=== PATIENT | male | born 1980 | race Caucasian/White ===

== ENCOUNTER 2022-10-06 10:34 | Emergency (ER) | payer SELFPAY ==
[2022-10-06 10:39] VITALS: BP 130/95; PULSE 102; RESP 20; TEMP 36.8; O2SAT 98
--- NOTE | 2022-10-06 10:56 | ED.ALLEREA ---
HPI - Allergic Reaction General Chief complaint: Allergic Reaction Stated complaint: facial swelling Time Seen by Provider: 10/06/22 10:53 History of Present Illness HPI narrative: Pt presents with facial swelling around eyes and neck for the last two days. Pt denies tongue swelling or SOB. Pt denies new soaps, meds, detergents, or unusual exposures. Related Data Allergies Allergy/AdvReac Type Severity Reaction Status Date / Time Penicillins Allergy Unknown Verified 10/06/22 12:51 Review of Systems Review of Systems: All systems reviewed & are unremarkable except as noted in HPI and below Exam Const: General: healthy appearing Nutritional Appearance: well nourished Orientation/consciousness: patient oriented x3 Limitations: no limitations HENMT: Other: facial swelling and edema mainly periorbital but no erythema Eyes: Conjunctivae: conjunctivae normal EOM: EOMs intact bilaterally Neck: Neck: normal visual inspection and no lymphadenopathy Resp: Effort & Inspection: normal respiratory effort Auscultation: clear to auscultation bilaterally Cardio: Rate: regular rate Rhythm: regular rhythm GI: GI Palp: Yes Soft to palpation and No Tenderness to palpation present (GI) Auscultation: normal bowel sounds Skin: General skin exam: normal color Rashes: no rashes Neuro: General: patient oriented x3, moves all extremities, no meningeal signs and no focal motor deficits Speech: normal speech Extrem: General: normal to inspection and edema (chronic per pt) bilateral Psych: Mental Status: mental status grossly normal Affect: normal affect Attitude: cooperative Course Vital Signs Vital signs: Vital Signs Temperature 98.3 F 10/06/22 10:39 Pulse Rate 102 H 10/06/22 10:39 Respiratory Rate 20 10/06/22 10:39 Blood Pressure 130/95 H 10/06/22 10:39 Pulse Oximetry 98 10/06/22 10:39 Oxygen Delivery Room Air 10/06/22 10:39 Temperature 98.3 F 10/06/22 10:39 Pulse Rate 83 10/06/22 12:50 Respiratory Rate 14 10/06/22 12:50 Blood Pressure 128/80 10/06/22 12:50 Pulse Oximetry 91 10/06/22 12:50 Oxygen Delivery Room Air 10/06/22 10:39 MDM - Allergic Reaction MDM Narrative Medical decision making narrative: looks like allergic reaction and not infection will treat with benadryl pepcid and solumedrol. Pt improved after treatment should be ok to go home Discharge Plan Discharge Clinical Impression: Allergic reaction, Angioedema Patient Disposition: Home, Self-Care Condition: Improved Instructions: Antibiotic Form, Angioedema (ED), General Allergic Reaction (ED) Additional Instructions: benadryl otc as directed Prescriptions: New prednisone 50 mg tablet 50 mg PO DAILY Qty: 5 0RF famotidine [Pepcid] 20 mg tablet 20 mg PO BID Qty: 20 0RF Follow-up/Referrals: UNKNOWN,DOCTOR [Non-Staff] - Stand Alone Forms: Work/School Release IP
[2022-10-06] MEDS: methylPREDNISolone SOD SUCC 125 MG VIAL IV PUSH (11:30)
[2022-10-06] MEDS: FAMOTIDINE 20 MG/2 ML VIAL IV PUSH (11:30)
[2022-10-06] MEDS: diphenhydrAMINE HCl INJ 50 MG/ML VIAL IV PUSH (11:30)
[2022-10-06 12:50] VITALS: BP 128/80; PULSE 83; RESP 14; O2SAT 91
== END 2022-10-06 14:30 | disposition home or self-care (01) ==
PROVIDERS: Emergency Provider Emergency Medicine
DX: T78.3XXA Angioneurotic edema, initial encounter (principal)
CPT/HCPCS: 96374; 96375; 99284; J1200; J2930

== ENCOUNTER 2022-10-30 14:50 | Inpatient (IN) | payer SELFPAY ==
[2022-10-30] VITALS (18 sets, daily range): BP systolic 137–181; BP diastolic 85–113; PULSE 105–115; RESP 18–19; TEMP 36.3–36.5; O2SAT 94–98; BMI 43.6
--- NOTE | ~2022-10-30 | XR_ITS ---
Clinical Indication: Hypoxemia AP and lateral views of the chest: Comparison: None Findings: The lungs are clear, without evidence of focal consolidation or pleural effusion. Cardiome diastinal silhouette is unremarkable. Bones and soft tissues are unremarkable. Impression: Normal chest. Reviewed, dictated and finalized at [facility]. AGE SALTER Impression: Normal chest.
--- NOTE | ~2022-10-30 | CT_ITS ---
EXAMINATION: CT LE RT w con DATE: 10/30/2022 17:28 INDICATION: Right lower limb swelling and infection. TECHNIQUE: Computed tomography (CT) of the right lower limb was performed with 100 mL Omnipaque 350 i ntravenous contrast. Automated exposure control and iterative reconstruction technique were employed. The dose-length product was 1585.33 mGy-cm. COMPARISON: None FINDINGS: Bone alignment is normal. No fracture. Right knee joint is normal. No knee joint effusion. There is extensive subcutaneous edema and skin thickening in the right lower limb predominantly below the knee. No abscess. IMPRESSION: 1. Extensive subcutaneous edema in right lower limb. No abscess. Reviewed, dictated and finalized at location A. NT LAWYER
--- NOTE | ~2022-10-30 | US_ITS ---
EXAMINATION: US venous doppler LE RT DATE: 10/30/2022 16:24 INDICATION: Unilateral right lower limb and pain and swelling. Varicose veins. TECHNIQUE: Grayscale ultrasound images without and with compression and Doppler ultrasound images of the right lower extremity veins were obtained. COMPARISON: None. FINDINGS: The visualized portions of right common femoral vein, profunda (deep) femoral vein, femoral vein, pop liteal vein, peroneal trunk, posterior tibial veins, peroneal veins, gastrocnemius vein and greater s aphenous vein outflow are patent. Prominent subcutaneous edema at the right calf. IMPRESSION: 1. No deep venous thrombosis in the right lower limb. Reviewed, dictated and finalized at location A. LE MACHINE OPERATOR
[2022-10-30 16:47] LABS: Hematocrit 46.5 % (42.0-52.0); Hemoglobin 15.3 g/dL (14.0-18.0); Mean Corpuscular HGB Conc 32.9 g/dl (32-36); Mean Corpuscular Hemoglobin 29.8 pg (26-34); Mean Corpuscular Volume 90.5 fl (80-100); Mean Platelet Volume 10.6 fl (7.4-10.4); Platelet Count Result 268 k/mm3 (150-375); Red Blood Count 5.14 M/mm3 (4.6-6.20); White Blood Count 13.2 K/mm3 (4.5-10.0)
[2022-10-30 17:00] LABS: Alanine Aminotransferase 34 U/L (6-50); Albumin Level 3.7 g/dL (3.5-5.1); Alkaline Phosphatase 120 U/L (38-126); Anion Gap 9 mmol/L (8-16); Aspartate Amino Transferase 56 U/L (17-59); Bilirubin,Total 0.5 mg/dL (0.2-1.3); Blood Urea Nitrogen 31 mg/dL (9-20); Calcium 8.3 mg/dL (8.4-10.2); Carbon Dioxide 27 mmol/L (22-30); Chloride 96 mmol/L (98-107); Estimated CRCL calculation 82 ml/min; Estimated Glomerular Filt Rate 51; Glucose 133 mg/dL (65-110); Potassium 3.9 mmol/L (3.4-5.0); Sodium 132 mmol/L (137-145)
[2022-10-30 17:25] LABS: Band Neutrophils Percent 18 % (0-6); Lymphocytes Absolute Manual 0.79 K/mm3 (1.1-4.5); Monocytes Absolute Manual 0.26 K/mm3 (0.1-0.90); Monocytes Percent Manual 2 % (3-9); Neutrophils Absolute Manual 12.14 K/mm3 (1.3-6.7); Neutrophils Percent Manual 74 % (46-73); Platelet Estimate Adequate (Adequate); Schistocytes None Seen (NORMAL); Total Cells Counted 100
[2022-10-30 17:30] LABS: Erythrocyte Sedimentation Rate 6 mm/hr (0-20)
--- NOTE | 2022-10-30 17:54 | ED.EXTPRO ---
HPI - Extremity Problem General Chief complaint: Extremity Problem,Nontraumatic Stated complaint: swelling in RLE w/ drainage Time Seen by Provider: 10/30/22 15:43 History of Present Illness HPI Narrative: Patient presents with months of swelling in his right lower extremity, with a skin rash/redness, that has been oozing watery fluid. He is denying any pain, fevers or chills. He denies any medical problems Related Data Allergies Allergy/AdvReac Type Severity Reaction Status Date / Time Penicillins Allergy Unknown Verified 10/06/22 12:51 Review of Systems Review of Systems: CONST: No fever. HEENT: No sore throat C/V: No chest pain RESP: No cough GI: No nausea vomit : No dysuria. M/S: Right lower extremity swelling and oozing SKIN: Bruising rash on right lower extremity NEURO: [No headache or focal numbness or weakness] PSYCH: [No depression] Exam Narrative: EXAMINATION OF ORGAN SYSTEMS/BODY AREAS: Constitutional: Vital signs per nursing GENERAL:[No acute distress, non-toxic appearing.] HEAD: Normal with no signs of head trauma. EYES: EOMI, conjunctiva normal ENT: Hearing grossly intact LUNGS: Nonlabored breathing. HEART: Tachycardia; normal DP pulses ABD: [Soft], [nontender to palpation] EXT: Normal range of motion, right lower extremity obviously larger compared to left SKIN: Erythematous rash right lower leg, wet, weeping thickened ulcer worst on lateral leg; no tenderness to palpation NEURO: [Alert and oriented x 3. No gross focal sensory or strength deficits.] PSYCH: Flat/indifferent affect Course Vital Signs Vital signs: Vital Signs Temperature 97.7 F 10/30/22 16:07 Pulse Rate 115 H 10/30/22 16:07 Respiratory Rate 18 10/30/22 16:07 Blood Pressure 137/85 10/30/22 16:07 Pulse Oximetry 97 10/30/22 16:07 Temperature 97.7 F 10/30/22 16:07 Pulse Rate 115 H 10/30/22 16:07 Respiratory Rate 18 10/30/22 16:07 Blood Pressure 137/85 10/30/22 16:07 Pulse Oximetry 97 10/30/22 16:07 MDM - Extremity (Nontraumatic) MDM Narrative Medical decision making narrative: 42-year-old male presenting with right lower extremity edema and redness, been seen in urgent care yesterday and started on a lot of antibiotics and told to go to the ER. He is tachycardic here, and on exam has venostasis ulcers that are weeping with erythematous indurated skin, nontender to palpation, leg is overall much thickened compared to the left, but digits are warm. My differential includes DVT, cellulitis versus deeper infection, venous stasis ulcers. Labs notable for elevated white count, DVT ultrasound does not show DVT, and CT does show subcutaneous edema. Patient started on antibiotics and IV fluids and will be admitted, case discussed with the hospitalist for admission. Lab Data 10/30/22 16:38 10/30/22 16:38 Labs: Lab Results 10/30/22 10/30/22 Range/Units 16:38 16:38 WBC 13.2 H (4.5-10.0) K/mm3 RBC 5.14 (4.6-6.20) M/mm3 Hgb 15.3 (14.0-18.0) g/dL Hct 46.5 (42.0-52.0) % MCV 90.5 (80-100) fl MCH 29.8 (26-34) pg MCHC 32.9 (32-36) g/dl RDW 14.0 (11.5-14.5) % Plt Count 268 (150-375) k/mm3 MPV 10.6 H (7.4-10.4) fl Immature Gran % (Auto) [employer] Neut % (Auto) [employer] Lymph % (Auto) [employer] Rep [place] % (Auto) [employer] Eos % (Auto) [employer] Baso % (Auto) [employer] Lymph # (Auto) [employer] [place] # (Auto) Bi[employer] Rep Eos # (Auto) [employer] Baso # (Auto) [employer] Abs Immat Gran (auto) [employer] Absolute Neuts (auto) [employer] Absolute Nucleated RBC [employer] Total Counted 100 Neutrophils % (Manual) 74 H (46-73) % Band Neutrophils % 18 H (0-6) % Lymphocytes % (Manual) 6.0 L (18-44) % Monocytes % (Manual) 2 L (3-9) % Nucleated RBC % [employer] Abs Neuts (Manual) 12.14 H (1.3-6.7) K/mm3 Abs Lymphs (Manual) 0.79 L (1.1-4.5) K/mm3 Abs Monocytes (Manual) 0.26 (0.1-0.90) K/mm3 Platelet Estimate Adequate (Adequate) Schistocytes None seen (NO
[2022-10-30] MEDS: metroNIDAZOLE 500 MG/ISO 100ML 500 MG/100 ML BAG 100 MG IVPB (18:37)
[2022-10-30] MEDS: LACTATED RINGERS 1,000 ML 999 ML IV CONT (18:37)
--- NOTE | 2022-10-30 18:47 | PM.IMHP ---
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 The patient is edematous and it is oozing watery liquid. The patient does not know how this occurred. The patient has scabbed areas all over his arms. The patient stated that he scratches often and may have scratched in areas to his lower extremity. The patient stated he has been using topical antibiotics and wrapping his leg. However in often times the bandage comes off or falls down. He denies any fever chills. His white count is 13.2. The patient stated that he could no longer take the pain and that is when he decided to go to the urgent care. He was prescribed Bactrim and doxycycline. However he stated his leg was not getting any better. The redness goes all the way up to his thigh. The patient then decided to come to the emergency room for this today. Patient's creatinine is 1.5. His blood sugar was 133. The patient was negative for influenza a B RSV and COVID. The patient was started on Levaquin and Flagyl. The patient is being admitted to inpatient status on the date of service 10/30/2022 Review of Systems Review of Systems: See HPI All systems reviewed & are unremarkable except as noted in HPI and below Constitutional: Constitutional: Reports as per HPI and Reports no additional constitutional complaints Eyes: Eyes: Reports as per HPI and Reports no additional eye complaints ENT: Reports system reviewed and no additional complaints, except as documented and Reports Normal hearing present Cardiovascular: Cardiovascular: Reports no additional cardiovascular complaints Respiratory: Respiratory: Reports no additional respiratory complaints and Reports no additional respiratory complaints Gastrointestinal: Gastrointestinal: Reports as per HPI and Reports no additional gastrointestinal complaints Musculoskeletal: Musculoskeletal: Reports no additional musculoskeletal complaints Integumentary/Breasts: Skin/Breast: Reports system reviewed and no additional complaints, except as docu and Reports as per HPI Neurologic: Reports system reviewed and no additional complaints, except as documented, Reports as per HPI and Reports Normal hearing present Psychiatric: Psychiatric: Reports no additional psychiatric complaints and Reports as per HPI Endocrine: Endocrine: Reports no additional endocrine complaints Hematologic/Lymphatic: Hematologic/Lymphatic: Reports no additional hematologic/lymphatic complaints Allergic/Immunologic: Allergic/Immunologic: Reports no additional allergic/immunologic complaints PMFSH Past Medical History Medical History History of gastrostomy tube placement now removed Surgical History Surgical History Hx of chest tube placement now out Hx of tracheostomy now out Family History Family History Father Alcoholism Social History Social History (Updated 10/31/22 @ 00:30 by Mary Wayne NP) Social History: 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 He is and has 2 children. He continues to smoke 1-1 and half to 2 packs of cigarettes a day. Code status full code Smoking packs per day: 2 Smoking cigarettes per day: 40.0 Smoking status: Heavy tobacco smoker Second hand tobacco smoke exposure: No Alcohol intake: former Drinks per week: 3 Substance use: never Substance use type: does not use Lack of Transportation: No Lack of Food: Never True Current Housing: I Have Housing Concerned About Future Housing: No Difficulty Paying Gas/Electric Bills: No Difficulty Paying for Meds: No Curre
[2022-10-30 19:22] LABS: Influenza A QL RT-PCR Negative (Negative); Influenza B QL RT-PCR Negative (Negative); RSV RNA, RT-PCR Negative (Negative); SARS-CoV-2 RNA PCR Negative
--- NOTE | 2022-10-30 21:21 | PC.NURSE ---
Patient arrived on 3 Med-Surg at 21:15
[2022-10-30] MEDS: traMADol HCL (*CRX) 25 MG TABLET PO (21:45)
--- NOTE | 2022-10-31 | ECHO_ITS ---
Patient Info Name: Jean Gongora Age: 42 years : 1980 Gender: Male Ht: 72 in Wt: 321 lbs BSA: 2.79 m2 HR: 111 bpm BP: 150 / 92 mmHg Heart Rhythm: Sinus Rhythm Technical Quality: Poor Exam Date: 10/31/2022 1:42 PM Exam Location: [facility] Exam Room: 330 Patient Status: Inpatient Admit Date: 10/30/2022 Staff Ordering Physician: Stephany Leo MD Rn Hospice: Leena Gaston RDCS Attending Provider: Bello Duffy MD Exam Type: CA echo dop color flow w con Study Info Indications - JOHN Complete two-dimensional, color flow and Doppler transthoracic echocardiogram is performed with contrast to opacify the left ventricle and to improve the deliniation of the left ventricle endocardial borders. Contrast/Agitated Saline Contrast/Ag. Saline: Definity Amount: 2.00 ml Administered By: Leena Gaston [facility] Existing IV Access: Yes IV Access Condition: patent with no signs of infiltration Reason for Poor Study: patient body habitus Summary 1. Technically difficult echocardiogram because of obesity. 2. Definity contrast injected to improve visualization. 3. Hyperdynamic left ventricular systolic function. 4. No significant valvular dysfunction identified. Left Ventricle Left ventricular chamber dimension is normal. Left ventricular systolic function is hyperdynamic, estimated at >70%. The left ventricular diastolic function is grade I diastolic dysfunction. Right Ventricle Right ventricular chamber dimension is normal. Left Atria Left atrial chamber dimension is normal. Right Atria Right atrial chamber dimension is normal. Aortic Valve The aortic valve is normal. Pulmonic Valve The pulmonic valve is not well visualized. Mitral Valve The mitral valve has normal leaflets. Tricuspid Valve The tricuspid valve leaflets are not well visualized. Pericardium/Pleural The pericardium appears normal. Aorta The aortic root size at the sinus of Valsalva is normal. Left Ventricular Outflow Tract Name Value Normal LVOT 2D LVOT Diameter 2.18 cm Pulmonic Valve Name Value Normal PV Doppler PV Peak Gradient 4 mmHg Mitral Valve Name Value Normal MV Doppler MV Decel [place] 410.37 cm/s2 MV PHT 0 s MV Area (PHT) 3.61 cm2 4.00-5.00 MV Diastolic Function MV E Peak Velocity 86.31 cm/s MV A Peak Velocity 93.32 cm/s MV E/A 0.92 MV Decel Time
[2022-10-31] MEDS: metroNIDAZOLE 500 MG/ISO 100ML 500 MG/100 ML BAG 100 MG IVPB ×5 (00:15→23:35)
[2022-10-31 06:00] VITALS: BP 150/92; PULSE 117; RESP 19; TEMP 37.4; O2SAT 93
[2022-10-31 06:42] LABS: Hemoglobin 13.1 g/dL (14.0-18.0); Mean Corpuscular HGB Conc 32.8 g/dl (32-36); Mean Corpuscular Hemoglobin 29.8 pg (26-34); Mean Corpuscular Volume 90.9 fl (80-100); Mean Platelet Volume 11.1 fl (7.4-10.4); Platelet Count Result 236 k/mm3 (150-375); Red Cell Distribution Width 13.8 % (11.5-14.5); White Blood Count 13.4 K/mm3 (4.5-10.0)
[2022-10-31 06:51] LABS: Lactic Acid Reflex 0.9 mmol/L (0.7-2.0)
[2022-10-31 07:04] LABS: Alanine Aminotransferase 31 U/L (6-50); Albumin Level 3.2 g/dL (3.5-5.1); Alkaline Phosphatase 110 U/L (38-126); Anion Gap 2 mmol/L (8-16); Aspartate Amino Transferase 47 U/L (17-59); Bilirubin,Total 0.4 mg/dL (0.2-1.3); Blood Urea Nitrogen 18 mg/dL (9-20); Calcium 7.8 mg/dL (8.4-10.2); Carbon Dioxide 26 mmol/L (22-30); Chloride 100 mmol/L (98-107); Estimated CRCL calculation 124 ml/min; Estimated Glomerular Filt Rate > 60; Glucose 134 mg/dL (65-110); Potassium 3.8 mmol/L (3.4-5.0); Sodium 128 mmol/L (137-145)
[2022-10-31 07:22] LABS: Band Neutrophils Percent 12 % (0-6); Lymphocytes Absolute Manual 0.93 K/mm3 (1.1-4.5); Monocytes Absolute Manual 0.53 K/mm3 (0.1-0.90); Monocytes Percent Manual 4 % (3-9); Neutrophils Absolute Manual 11.92 K/mm3 (1.3-6.7); Neutrophils Percent Manual 77 % (46-73); Platelet Estimate Adequate (Adequate); Total Cells Counted 100
[2022-10-31 07:23] LABS: Schistocytes None Seen (NORMAL)
[2022-10-31] MEDS: MULTIVITAMINS /C LUTEIN (CENTRUM SILVER) TABLET *BKC 1 TAB PO (08:28)
[2022-10-31] MEDS: ENOXAPARIN 40 MG/0.4 ML SYRINGE SUB-Q (08:28)
[2022-10-31] MEDS: traMADol HCL (*CRX) 25 MG TABLET PO ×3 (08:34→23:36)
[2022-10-31 10:26] VITALS: O2SAT 92
[2022-10-31] MEDS: SILVERGEL (ELTA) 45 ML 1 APPLIC TOPICAL (12:50)
[2022-10-31] MEDS: MUPIROCIN 2% OINT 22 GM TUBE 1 APPLIC TOPICAL (12:50)
[2022-10-31] MEDS: PERFLUTREN LIPID MICROSPHERES 1.5 ML VIAL DILUTED TO 10 ML TOTAL VOLUME IV PUSH (14:10)
[2022-10-31 14:26] VITALS: BP 139/73; PULSE 113; RESP 18; TEMP 37.1; O2SAT 92
--- NOTE | 2022-10-31 17:42 | PM.IMPN ---
Progress Note: A&P Assessment and Plan (1) Cellulitis: Code(s): L03.90 - Cellulitis, unspecified Status: Acute Assessment and Plan: -the patient was started on Levaquin and Flagyl. -tailor antibiotics to cultures. Wound and blood cultures are pending. The patient had a leukocytosis of 13.2 -I did consult Wound Care for dressings -patient had been on doxycycline and Bactrim outpatient. -the patient had been taking NSAIDs for discomfort -he is currently on tramadol -venous Dopplers were negative. 10/31/2022 interval history: patient with a right lower leg erythmatous and swallow, compared to left lower extremity which appears to be normal, venous Doppler negative for DVT, patient does not have any history of cardiac however to further evaluate cardiac echo is ordered, meanwhile patient is treated with antibiotics for cellulitis, suspect most likely patient has lymphadenopathy will continue to monitor have PT OT evaluate the patient. (2) Acute renal failure: Code(s): N17.9 - Acute kidney failure, unspecified Status: Acute Assessment and Plan: -the patient had been taking at 1000 mg of ibuprofen every 4 hours as needed. -I am holding nephrotoxic medication at this time. -the patient had also been on doxycycline and Bactrim. -continue to monitor renal function. His creatinine is 1.5 and I have no prior labs for comparison (3) Elevated blood pressure reading: Code(s): R03.0 - Elevated blood-pressure reading, without diagnosis of hypertension Status: Acute Assessment and Plan: -please continue to monitor. His blood pressure may be elevated due to the pain. -she has p.r.n. hydralazine with parameters. Blood pressure was noted to be 152/104. 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 The patient is edematous and it is oozing watery liquid.? The patient does not know how this occurred.? The patient has scabbed areas all over his arms.? The patient stated that he scratches often and may have scratched in areas to his lower extremity.? The patient stated he has been using topical antibiotics and wrapping his leg.? However in often times the bandage comes off or falls down.? He denies any fever chills.? His white count is 13.2.? The patient stated that he could no longer take the pain and that is when he decided to go to the urgent care.? He was prescribed Bactrim and doxycycline.? However he stated his leg was not getting any better.? The redness goes all the way up to his thigh.? The patient then decided to come to the emergency room for this today.? Patient's creatinine is 1.5.? His blood sugar was 133.? The patient was negative for influenza a B RSV and COVID.? The patient was started on Levaquin and Flagyl.? The patient is being admitted to inpatient status on the date of service 10/30/2022 10/31/2022 interval history: patient with a right lower leg erythmatous and swallow, compared to left lower extremity which appears to be normal, venous Doppler negative for DVT, patient does not have any history of cardiac however to further evaluate cardiac echo is ordered, meanwhile patient is treated with antibiotics for cellulitis, suspect most likely patient has lymphadenopathy will continue to monitor have PT OT evaluate the patient. Review of Systems Review of Systems: See HPI All systems reviewed & are unremarkable except as noted in HPI and below Constitutional: Constitutional: Reports as per HPI and Reports no additional constitutional complaints Eyes: Eyes: Reports as per HPI and Reports no additional eye complaints ENT: Reports system reviewed and no additional complaints, except as documented and Reports Normal hearing present Cardiovascular: Cardiovascular: Reports no additional cardiovascular complaints
[2022-10-31 21:28] VITALS: BP 126/68; PULSE 81; RESP 20; TEMP 36.3; O2SAT 93
[2022-11-01 05:18] VITALS: BP 126/81; PULSE 108; RESP 20; TEMP 36.4; O2SAT 90
[2022-11-01] MEDS: metroNIDAZOLE 500 MG/ISO 100ML 500 MG/100 ML BAG 100 MG IVPB ×4 (06:30→21:41)
[2022-11-01] MEDS: MULTIVITAMINS /C LUTEIN (CENTRUM SILVER) TABLET *BKC 1 TAB PO (09:56)
[2022-11-01] MEDS: ENOXAPARIN 40 MG/0.4 ML SYRINGE SUB-Q (09:56)
[2022-11-01] MEDS: MUPIROCIN 2% OINT 22 GM TUBE 1 APPLIC TOPICAL (10:00)
[2022-11-01] MEDS: SILVERGEL (ELTA) 45 ML 1 APPLIC TOPICAL (10:00)
--- NOTE | 2022-11-01 12:28 | PM.IMPN ---
Progress Note: A&P Assessment and Plan (1) Cellulitis: Code(s): L03.90 - Cellulitis, unspecified Status: Acute Assessment and Plan: -the patient was started on Levaquin and Flagyl. -tailor antibiotics to cultures. Wound and blood cultures are pending. The patient had a leukocytosis of 13.2 -I did consult Wound Care for dressings -patient had been on doxycycline and Bactrim outpatient. -the patient had been taking NSAIDs for discomfort -he is currently on tramadol -venous Dopplers were negative. 11/01/2022 interval history: patient with a right lower leg erythmatous and edematous, compared to left lower extremity which appears to be normal, venous Doppler negative for DVT, patient does not have any history of cardiac however to further evaluate cardiac echo was done and which LV systolic EF 70% and grade 1 diastolic dysfunction, unlikely cardiac cause of left lower extremity edema, patient is treated with antibiotics for cellulitis, suspect most likely patient has lymphadenopathy will continue to monitor have PT OT evaluate the patient. (2) Acute renal failure: Code(s): N17.9 - Acute kidney failure, unspecified Status: Acute Assessment and Plan: -the patient had been taking at 1000 mg of ibuprofen every 4 hours as needed. -I am holding nephrotoxic medication at this time. -the patient had also been on doxycycline and Bactrim. -continue to monitor renal function. His creatinine is 1.5 and I have no prior labs for comparison (3) Elevated blood pressure reading: Code(s): R03.0 - Elevated blood-pressure reading, without diagnosis of hypertension Status: Acute Assessment and Plan: -please continue to monitor. His blood pressure may be elevated due to the pain. -she has p.r.n. hydralazine with parameters. Blood pressure was noted to be 152/104. Subjective Date/time seen: 11/01/22 12:28 -the patient was started on Levaquin and Flagyl. -tailor antibiotics to cultures. Wound and blood cultures are pending. The patient had a leukocytosis of 13.2 -I did consult Wound Care for dressings -patient had been on doxycycline and Bactrim outpatient. -the patient had been taking NSAIDs for discomfort -he is currently on tramadol -venous Dopplers were negative. 11/01/2022 interval history: patient with a right lower leg erythmatous and edematous, compared to left lower extremity which appears to be normal, venous Doppler negative for DVT, patient does not have any history of cardiac however to further evaluate cardiac echo was done and which LV systolic EF 70% and grade 1 diastolic dysfunction, unlikely cardiac cause of left lower extremity edema, patient is treated with antibiotics for cellulitis, suspect most likely patient has lymphadenopathy will continue to monitor have PT OT evaluate the patient. Review of Systems Review of Systems: All systems reviewed & are unremarkable except as noted in HPI and below Exam Narrative: morbidly obese Patient is comfortable, NAD HEENT: eyes are clear and none icteric LUNGS:CTA HEART: RR S1S2 ABD: BS+, Soft and nontender Lower extremities: right lower extremity edematous and erythematous compared to left lower extremity SKIN: nonjaundiced Neuro: grossly intact. Objective Data Vital Signs Vital Signs: Vital Signs - 24 hr 10/31/22 14:26 10/31/22 21:28 10/31/22 20:00 Temperature 98.8 F 97.4 F L Pulse Rate 113 H 81 Respiratory Rate 18 20 Blood Pressure 139/73 126/68 Pulse Oximetry 92 93 Oxygen Delivery Room Air 11/01/22 05:18 Temperature 97.5 F L Pulse Rate 108 H Respiratory Rate 20 Blood Pressure 126/81 Pulse Oximetry 90 Oxygen Delivery Intake/Output Intake/Output: Intake & Output 10/29/22 10/30/22 10/31/22 11/01/22 23:59 23:59 23:59 23:59 Intake Total 1250 3110 1366 Balance 1250 3110 1366 Meds/Results Medications: Active Medications Generic Name Dose Route Start Last Admin T
[2022-11-01] MEDS: traMADol HCL (*CRX) 25 MG TABLET PO ×2 (13:03→21:49)
[2022-11-01 14:00] VITALS: BP 126/70; PULSE 101; RESP 20; TEMP 36.7; O2SAT 95
[2022-11-01 21:41] VITALS: BP 144/79; PULSE 104; RESP 18; TEMP 36.9; O2SAT 93
[2022-11-02] MEDS: metroNIDAZOLE 500 MG/ISO 100ML 500 MG/100 ML BAG 100 MG IVPB ×4 (05:53→22:50)
[2022-11-02 06:00] VITALS: BP 120/94; PULSE 100; RESP 20; TEMP 36.3; O2SAT 92
[2022-11-02] MEDS: MULTIVITAMINS /C LUTEIN (CENTRUM SILVER) TABLET *BKC 1 TAB PO (09:09)
[2022-11-02] MEDS: ENOXAPARIN 40 MG/0.4 ML SYRINGE SUB-Q (09:09)
[2022-11-02] MEDS: MUPIROCIN 2% OINT 22 GM TUBE 1 APPLIC TOPICAL (09:11)
[2022-11-02] MEDS: traMADol HCL (*CRX) 25 MG TABLET PO ×2 (09:14→20:52)
[2022-11-02] MEDS: SILVERGEL (ELTA) 45 ML 1 APPLIC TOPICAL (10:17)
--- NOTE | 2022-11-02 10:50 | PM.IMPN ---
Progress Note: A&P Assessment and Plan (1) Cellulitis: Code(s): L03.90 - Cellulitis, unspecified Status: Acute Assessment and Plan: -the patient was started on Levaquin and Flagyl. -tailor antibiotics to cultures. Wound and blood cultures are pending. The patient had a leukocytosis of 13.2 -I did consult Wound Care for dressings -patient had been on doxycycline and Bactrim outpatient. -the patient had been taking NSAIDs for discomfort -he is currently on tramadol -venous Dopplers were negative. 11/02/2022 interval history: patient with a right lower leg erythmatous and edematous, compared to left lower extremity which appears to be normal, venous Doppler negative for DVT, patient does not have any history of cardiac however to further evaluate cardiac echo was done and which showed LV systolic EF 70% and grade 1 diastolic dysfunction, unlikely cardiac cause of left lower extremity edema, today examined patient right lower extremity along anterior aspect superficial erosive ulcer with minimal drainage, woond dressin applied, would culture is growing pseudomonas rodriguez sensitive currently treated with Levofloxin and flagyl, blood culture no growth so far, suspect most likely patient has lymphadenopathy will continue to monitor have PT OT evaluate the patient. (2) Acute renal failure: Code(s): N17.9 - Acute kidney failure, unspecified Status: Acute Assessment and Plan: -the patient had been taking at 1000 mg of ibuprofen every 4 hours as needed. -I am holding nephrotoxic medication at this time. -the patient had also been on doxycycline and Bactrim. -continue to monitor renal function. His creatinine is 1.5 and I have no prior labs for comparison (3) Elevated blood pressure reading: Code(s): R03.0 - Elevated blood-pressure reading, without diagnosis of hypertension Status: Acute Assessment and Plan: -please continue to monitor. His blood pressure may be elevated due to the pain. -she has p.r.n. hydralazine with parameters. Blood pressure was noted to be 152/104. Subjective Date/time seen: 11/02/22 10:50 11/02/2022 interval history: patient with a right lower leg erythmatous and edematous, compared to left lower extremity which appears to be normal, venous Doppler negative for DVT, patient does not have any history of cardiac however to further evaluate cardiac echo was done and which showed LV systolic EF 70% and grade 1 diastolic dysfunction, unlikely cardiac cause of left lower extremity edema, today examined patient right lower extremity along anterior aspect superficial erosive ulcer with minimal drainage, woond dressin applied, would culture is growing pseudomonas rodriguez sensitive currently treated with Levofloxin and flagyl, blood culture no growth so far, suspect most likely patient has lymphadenopathy will continue to monitor have PT OT evaluate the patient. Review of Systems Review of Systems: All systems reviewed & are unremarkable except as noted in HPI and below Exam Narrative: morbidly obese Patient is comfortable, NAD HEENT: eyes are clear and none icteric LUNGS:CTA HEART: RR S1S2 ABD: BS+, Soft and nontender Lower extremities: right lower extremity edematous and erythematous compared to left lower extremity SKIN: nonjaundiced Neuro: grossly intact. Objective Data Vital Signs Vital Signs: Vital Signs - 24 hr 11/01/22 14:00 11/01/22 21:41 11/02/22 06:00 Temperature 98.0 F 98.5 F 97.3 F L Pulse Rate 101 H 104 H 100 Respiratory Rate 20 18 20 Blood Pressure 126/70 144/79 H 120/94 H Pulse Oximetry 95 93 92 Intake/Output Intake/Output: Intake & Output 10/30/22 10/31/22 11/01/22 11/02/22 23:59 23:59 23:59 23:59 Intake Total 1250 3110 2996 500 Output Total 3 1000 Balance 1250 3110 2993 -500 Meds/Results Medications: Active Medications Generic Name Dose Route Start Last Admin Trade Name Freq PRN Reason Stop Dose Admin
[2022-11-02 14:00] VITALS: BP 123/77; PULSE 106; RESP 20; TEMP 36.8; O2SAT 92
[2022-11-02 21:09] VITALS: BP 136/75; PULSE 109; RESP 18; TEMP 36.9; O2SAT 90
--- NOTE | 2022-11-03 04:57 | PC.NURSE ---
Patient resting quietly in bed. Was awake and not in any distress when [employer] did vitals and noted patient's pulse ox was 79%. abstract clerk at bedside with this nurse and patient was placed on 3L NC of oxygen. Patient had come up to 91% on his own but took several minutes to recover. Patient states that he smokes 1-2 packs per day and is a noncompliant SANDEEP patient. Patient denied any SOB or distress of any kind.
[2022-11-03 05:24] VITALS: BP 158/83; PULSE 111; RESP 16; TEMP 37.1; O2SAT 92
[2022-11-03] MEDS: metroNIDAZOLE 500 MG/ISO 100ML 500 MG/100 ML BAG 100 MG IVPB ×4 (05:34→23:57)
[2022-11-03 08:08] LABS: Hematocrit 41.3 % (42.0-52.0); Hemoglobin 13.2 g/dL (14.0-18.0); Mean Corpuscular Hemoglobin 29.7 pg (26-34); Platelet Count Result 328 k/mm3 (150-375); Red Blood Count 4.44 M/mm3 (4.6-6.20); Red Cell Distribution Width 14.2 % (11.5-14.5); White Blood Count 18.3 K/mm3 (4.5-10.0)
[2022-11-03 08:28] LABS: Anion Gap 5 mmol/L (8-16); Blood Urea Nitrogen 8 mg/dL (9-20); Calcium 7.8 mg/dL (8.4-10.2); Carbon Dioxide 28 mmol/L (22-30); Chloride 102 mmol/L (98-107); Estimated CRCL calculation 172 ml/min; Estimated Glomerular Filt Rate > 60; Glucose 114 mg/dL (65-110); Magnesium 1.9 mg/dL (1.6-2.3); Potassium 3.5 mmol/L (3.4-5.0); Sodium 135 mmol/L (137-145)
[2022-11-03] MEDS: MULTIVITAMINS /C LUTEIN (CENTRUM SILVER) TABLET *BKC 1 TAB PO (08:33)
[2022-11-03] MEDS: traMADol HCL (*CRX) 25 MG TABLET PO ×2 (08:33→20:41)
[2022-11-03] MEDS: ENOXAPARIN 40 MG/0.4 ML SYRINGE SUB-Q (08:33)
[2022-11-03] MEDS: MUPIROCIN 2% OINT 22 GM TUBE 1 APPLIC TOPICAL (08:34)
[2022-11-03] MEDS: SILVERGEL (ELTA) 45 ML 1 APPLIC TOPICAL (08:34)
[2022-11-03 08:40] VITALS: O2SAT 91
[2022-11-03 13:50] VITALS: BP 132/86; PULSE 103; RESP 17; TEMP 36.8; O2SAT 100
--- NOTE | 2022-11-03 15:04 | PM.IMPN ---
Progress Note: A&P Assessment and Plan (1) Cellulitis: Code(s): L03.90 - Cellulitis, unspecified Status: Acute Assessment and Plan: -the patient was started on Levaquin and Flagyl. -tailor antibiotics to cultures. Wound and blood cultures are pending. The patient had a leukocytosis of 13.2 -I did consult Wound Care for dressings -patient had been on doxycycline and Bactrim outpatient. -the patient had been taking NSAIDs for discomfort -he is currently on tramadol -venous Dopplers were negative. 11/03/2022 interval history: patient with a right lower leg erythmatous and edematous, compared to left lower extremity which appears to be normal, venous Doppler negative for DVT, patient does not have any history of cardiac however to further evaluate cardiac echo was done and which showed LV systolic EF 70% and grade 1 diastolic dysfunction, unlikely cardiac cause of left lower extremity edema, on 11/02 examined patient right lower extremity along anterior aspect superficial erosive ulcer with minimal drainage, wound dressing applied, would culture is growing pseudomonas rodriguez sensitive currently treated with Levofloxin and flagyl, blood culture no growth so far, today discussed with ID pharmacy recommended to repeat the blood culture and further recommendation to follow suspect most likely patient has lymphadenopathy will continue to monitor have PT OT evaluate the patient. (2) Acute renal failure: Code(s): N17.9 - Acute kidney failure, unspecified Status: Acute Assessment and Plan: -the patient had been taking at 1000 mg of ibuprofen every 4 hours as needed. -I am holding nephrotoxic medication at this time. -the patient had also been on doxycycline and Bactrim. -continue to monitor renal function. His creatinine is 1.5 and I have no prior labs for comparison (3) Elevated blood pressure reading: Code(s): R03.0 - Elevated blood-pressure reading, without diagnosis of hypertension Status: Acute Assessment and Plan: -please continue to monitor. His blood pressure may be elevated due to the pain. -she has p.r.n. hydralazine with parameters. Blood pressure was noted to be 152/104. Subjective Date/time seen: 11/03/22 15:04 -the patient was started on Levaquin and Flagyl. -tailor antibiotics to cultures. Wound and blood cultures are pending. The patient had a leukocytosis of 13.2 -I did consult Wound Care for dressings -patient had been on doxycycline and Bactrim outpatient. -the patient had been taking NSAIDs for discomfort -he is currently on tramadol -venous Dopplers were negative. 11/03/2022 interval history: patient with a right lower leg erythmatous and edematous, compared to left lower extremity which appears to be normal, venous Doppler negative for DVT, patient does not have any history of cardiac however to further evaluate cardiac echo was done and which showed LV systolic EF 70% and grade 1 diastolic dysfunction, unlikely cardiac cause of left lower extremity edema, on 11/02 examined patient right lower extremity along anterior aspect superficial erosive ulcer with minimal drainage, wound dressing applied, would culture is growing pseudomonas rodriguez sensitive currently treated with Levofloxin and flagyl, blood culture no growth so far, today discussed with ID pharmacy recommended to repeat the blood culture and further recommendation to follow suspect most likely patient has lymphadenopathy will continue to monitor have PT OT evaluate the patient. Review of Systems Review of Systems: All systems reviewed & are unremarkable except as noted in HPI and below Exam Narrative: morbidly obese Patient is comfortable, NAD HEENT: eyes are clear and none icteric LUNGS:CTA HEART: RR S1S2 ABD: BS+, Soft and nontender Lower extremities: right lower extremity edematous and erythematous compared to left lower extremity SKIN: nonjaundiced Neuro: grossly intact. Objective [place]
[2022-11-03 22:00] VITALS: BP 134/86; PULSE 105; RESP 18; TEMP 36.7; O2SAT 91
[2022-11-04 05:19] VITALS: BP 135/73; PULSE 105; RESP 20; TEMP 36.8; O2SAT 92
[2022-11-04] MEDS: metroNIDAZOLE 500 MG/ISO 100ML 500 MG/100 ML BAG 100 MG IVPB ×4 (06:29→23:23)
[2022-11-04 08:16] LABS: Hematocrit 40.9 % (42.0-52.0); Hemoglobin 12.9 g/dL (14.0-18.0); Mean Corpuscular HGB Conc 31.5 g/dl (32-36); Mean Corpuscular Hemoglobin 29.3 pg (26-34); Mean Platelet Volume 10.9 fl (7.4-10.4); Platelet Count Result 371 k/mm3 (150-375); Red Cell Distribution Width 14.4 % (11.5-14.5); White Blood Count 19.4 K/mm3 (4.5-10.0)
[2022-11-04 08:20] LABS: Anion Gap 3 mmol/L (8-16); Blood Urea Nitrogen 7 mg/dL (9-20); Calcium 7.8 mg/dL (8.4-10.2); Carbon Dioxide 31 mmol/L (22-30); Chloride 101 mmol/L (98-107); Estimated CRCL calculation 172 ml/min; Estimated Glomerular Filt Rate > 60; Glucose 119 mg/dL (65-110); Magnesium 1.8 mg/dL (1.6-2.3); Potassium 3.3 mmol/L (3.4-5.0); Sodium 135 mmol/L (137-145)
[2022-11-04] MEDS: MUPIROCIN 2% OINT 22 GM TUBE 1 APPLIC TOPICAL (08:59)
[2022-11-04] MEDS: ENOXAPARIN 40 MG/0.4 ML SYRINGE SUB-Q (08:59)
[2022-11-04] MEDS: SILVERGEL (ELTA) 45 ML 1 APPLIC TOPICAL (08:59)
[2022-11-04] MEDS: MULTIVITAMINS /C LUTEIN (CENTRUM SILVER) TABLET *BKC 1 TAB PO (08:59)
[2022-11-04] MEDS: traMADol HCL (*CRX) 25 MG TABLET PO ×4 (09:02→23:28)
[2022-11-04] MEDS: POTASSIUM CHLORIDE 20 MEQ TABLET 40 MEQ PO (09:02)
[2022-11-04] MEDS: GENTAMICIN SULFATE 0.1% CR 15 GM TUBE 1 APPLIC TOPICAL (13:28)
[2022-11-04 14:00] VITALS: BP 159/92; PULSE 98; RESP 20; TEMP 36.4; O2SAT 98
--- NOTE | 2022-11-04 14:04 | PM.IMPN ---
Progress Note: A&P Assessment and Plan (1) Cellulitis: Code(s): L03.90 - Cellulitis, unspecified Status: Acute Assessment and Plan: -the patient was started on Levaquin and Flagyl. -tailor antibiotics to cultures. Wound and blood cultures are pending. The patient had a leukocytosis of 13.2 -I did consult Wound Care for dressings -patient had been on doxycycline and Bactrim outpatient. -the patient had been taking NSAIDs for discomfort -he is currently on tramadol -venous Dopplers were negative. 11/04/2022 interval history: patient with a right lower leg erythmatous and edematous, compared to left lower extremity which appears to be normal, venous Doppler negative for DVT, patient does not have any history of cardiac however to further evaluate cardiac echo was done and which showed LV systolic EF 70% and grade 1 diastolic dysfunction, unlikely cardiac cause of left lower extremity edema, on 11/02 examined patient right lower extremity along anterior aspect superficial erosive ulcer with minimal drainage, wound dressing applied, would culture is growing pseudomonas rodriguez sensitive currently treated with Levofloxin and flagyl, blood culture no growth so far, on 11/03 patient white counts were climbing, discussed with ID pharmacy recommended to repeat the blood culture and further recommendation to follow suspect most likely patient has lymphadenopathy will continue to monitor have PT OT evaluate the patient. today examined the wound with his nurse and have wound team examine the wound which is improving, and recommended gentamicin ointment for th wound, if there is no growth on repeat blood culture, will discharge on 11/06. (2) Acute renal failure: Code(s): N17.9 - Acute kidney failure, unspecified Status: Acute Assessment and Plan: -the patient had been taking at 1000 mg of ibuprofen every 4 hours as needed. -I am holding nephrotoxic medication at this time. -the patient had also been on doxycycline and Bactrim. -continue to monitor renal function. His creatinine is 1.5 and I have no prior labs for comparison (3) Elevated blood pressure reading: Code(s): R03.0 - Elevated blood-pressure reading, without diagnosis of hypertension Status: Acute Assessment and Plan: -please continue to monitor. His blood pressure may be elevated due to the pain. -she has p.r.n. hydralazine with parameters. Blood pressure was noted to be 152/104. Subjective Date/time seen: 11/04/22 14:04 11/04/2022 interval history: patient with a right lower leg erythmatous and edematous, compared to left lower extremity which appears to be normal, venous Doppler negative for DVT, patient does not have any history of cardiac however to further evaluate cardiac echo was done and which showed LV systolic EF 70% and grade 1 diastolic dysfunction, unlikely cardiac cause of left lower extremity edema, on 11/02 examined patient right lower extremity along anterior aspect superficial erosive ulcer with minimal drainage, wound dressing applied, would culture is growing pseudomonas rodriguez sensitive currently treated with Levofloxin and flagyl, blood culture no growth so far, on 11/03 patient white counts were climbing, discussed with ID pharmacy recommended to repeat the blood culture and further recommendation to follow suspect most likely patient has lymphadenopathy will continue to monitor have PT OT evaluate the patient. today examined the wound with his nurse and have wound team examine the wound which is improving, and recommended gentamicin ointment for th wound, if there is no growth on repeat blood culture, will discharge on 11/06. Review of Systems Review of Systems: All systems reviewed & are unremarkable except as noted in HPI and below Exam Narrative: morbidly obese Patient is comfortable, NAD HEENT: eyes are clear and none icteric LUNGS:CTA HEART: RR S1S2 ABD: BS+, Soft and nontender Lower extremitie
[2022-11-04 21:57] VITALS: BP 143/89; PULSE 105; RESP 14; TEMP 36.1; O2SAT 90
[2022-11-05] MEDS: traMADol HCL (*CRX) 25 MG TABLET PO ×3 (03:33→17:34)
[2022-11-05] MEDS: metroNIDAZOLE 500 MG/ISO 100ML 500 MG/100 ML BAG 100 MG IVPB ×2 (05:26→11:27)
[2022-11-05 05:53] VITALS: BP 134/62; PULSE 92; RESP 14; TEMP 36.3; O2SAT 90
[2022-11-05 06:33] LABS: Hematocrit 39.9 % (42.0-52.0); Hemoglobin 12.7 g/dL (14.0-18.0); Mean Corpuscular HGB Conc 31.8 g/dl (32-36); Mean Corpuscular Hemoglobin 29.7 pg (26-34); Mean Corpuscular Volume 93.2 fl (80-100); Mean Platelet Volume 10.8 fl (7.4-10.4); Platelet Count Result 386 k/mm3 (150-375); Red Blood Count 4.28 M/mm3 (4.6-6.20); Red Cell Distribution Width 14.3 % (11.5-14.5); White Blood Count 18.4 K/mm3 (4.5-10.0)
[2022-11-05 06:46] LABS: Anion Gap 3 mmol/L (8-16); Blood Urea Nitrogen 7 mg/dL (9-20); Calcium 7.6 mg/dL (8.4-10.2); Carbon Dioxide 30 mmol/L (22-30); Chloride 102 mmol/L (98-107); Estimated CRCL calculation 172 ml/min; Estimated Glomerular Filt Rate > 60; Glucose 118 mg/dL (65-110); Magnesium 1.9 mg/dL (1.6-2.3); Potassium 3.6 mmol/L (3.4-5.0); Sodium 135 mmol/L (137-145)
[2022-11-05] MEDS: MULTIVITAMINS /C LUTEIN (CENTRUM SILVER) TABLET *BKC 1 TAB PO (08:25)
[2022-11-05] MEDS: ENOXAPARIN 40 MG/0.4 ML SYRINGE SUB-Q (08:25)
[2022-11-05] MEDS: GENTAMICIN SULFATE 0.1% CR 15 GM TUBE 1 APPLIC TOPICAL (08:25)
--- NOTE | 2022-11-05 11:47 | PCOTNOTE ---
Attempted to see pt. for occupational therapy evaluation. Pt. denies need for therapy services and was D/C from PT as pt. was independent. Nursing aware and in agreement. Contacted hospitalist without answer. Following.
--- NOTE | 2022-11-05 12:16 | PM.IMPN ---
Progress Note: A&P Assessment and Plan (1) Cellulitis: Code(s): L03.90 - Cellulitis, unspecified Status: Acute Assessment and Plan: -the patient was started on Levaquin and Flagyl. -tailor antibiotics to cultures. Wound and blood cultures are pending. The patient had a leukocytosis of 13.2 -I did consult Wound Care for dressings -patient had been on doxycycline and Bactrim outpatient. -the patient had been taking NSAIDs for discomfort -he is currently on tramadol -venous Dopplers were negative. 11/05/2022 interval history: patient with a right lower leg erythmatous and edematous, compared to left lower extremity which appears to be normal, venous Doppler negative for DVT, patient does not have any history of cardiac however to further evaluate cardiac echo was done and which showed LV systolic EF 70% and grade 1 diastolic dysfunction, unlikely cardiac cause of left lower extremity edema, on 11/02 examined patient right lower extremity along anterior aspect superficial erosive ulcer with minimal drainage, wound dressing applied, would culture is growing pseudomonas rodriguez sensitive currently treated with Levofloxin and flagyl, blood culture no growth so far, on 11/03 patient white counts were climbing, discussed with ID pharmacy recommended to repeat the blood culture and further recommendation to follow suspect most likely, repeat blood culture so far no growth, patient has lymphadenopathy will continue to monitor have PT OT evaluate the patient. on 11/04 examined the wound with his nurse and have wound team examine the wound which is improving, and recommended gentamicin ointment for the wound, today again discussed with the ID pharmacist if there is no growth on repeat blood culture, will discharge on 11/06. (2) Acute renal failure: Code(s): N17.9 - Acute kidney failure, unspecified Status: Acute Assessment and Plan: -the patient had been taking at 1000 mg of ibuprofen every 4 hours as needed. -I am holding nephrotoxic medication at this time. -the patient had also been on doxycycline and Bactrim. -continue to monitor renal function. His creatinine is 1.5 and I have no prior labs for comparison (3) Elevated blood pressure reading: Code(s): R03.0 - Elevated blood-pressure reading, without diagnosis of hypertension Status: Acute Assessment and Plan: -please continue to monitor. His blood pressure may be elevated due to the pain. -she has p.r.n. hydralazine with parameters. Blood pressure was noted to be 152/104. Subjective Date/time seen: 11/05/22 12:16 11/05/2022 interval history: patient with a right lower leg erythmatous and edematous, compared to left lower extremity which appears to be normal, venous Doppler negative for DVT, patient does not have any history of cardiac however to further evaluate cardiac echo was done and which showed LV systolic EF 70% and grade 1 diastolic dysfunction, unlikely cardiac cause of left lower extremity edema, on 11/02 examined patient right lower extremity along anterior aspect superficial erosive ulcer with minimal drainage, wound dressing applied, would culture is growing pseudomonas rodriguez sensitive currently treated with Levofloxin and flagyl, blood culture no growth so far, on 11/03 patient white counts were climbing, discussed with ID pharmacy recommended to repeat the blood culture and further recommendation to follow suspect most likely, repeat blood culture so far no growth, patient has lymphadenopathy will continue to monitor have PT OT evaluate the patient. on 11/04 examined the wound with his nurse and have wound team examine the wound which is improving, and recommended gentamicin ointment for the wound, today again discussed with the ID pharmacist if there is no growth on repeat blood culture, will discharge on 11/06. Review of Systems Review of Systems: All systems reviewed & are unremarkable except as noted in HPI and below
--- NOTE | 2022-11-05 14:35 | PCOTNOTE ---
Spoke with Dr. Leo who agreeable to discharging occupational therapy order at this time due to being independent with physical therapy and patient declining OT services.
[2022-11-05 15:30] VITALS: BP 132/76; PULSE 99; RESP 28; TEMP 36.9; O2SAT 92
[2022-11-05] MEDS: metroNIDAZOLE 250 MG TABLET 500 MG PO (20:43)
[2022-11-05] MEDS: levoFLOXacin 750 MG TABLET PO (20:44)
[2022-11-05 22:00] VITALS: BP 142/94; PULSE 93; RESP 18; TEMP 36.9; O2SAT 93
[2022-11-06] MEDS: traMADol HCL (*CRX) 25 MG TABLET PO ×3 (00:56→12:24)
[2022-11-06 06:00] VITALS: BP 134/76; PULSE 110; RESP 22; TEMP 36.3; O2SAT 93
[2022-11-06] MEDS: metroNIDAZOLE 250 MG TABLET 500 MG PO (06:00)
[2022-11-06 06:43] LABS: Chloride 96 mmol/L (98-107)
[2022-11-06 06:46] LABS: Anion Gap 4 mmol/L (8-16); Blood Urea Nitrogen 6 mg/dL (9-20); Calcium 7.7 mg/dL (8.4-10.2); Carbon Dioxide 29 mmol/L (22-30); Estimated CRCL calculation 172 ml/min; Estimated Glomerular Filt Rate > 60; Glucose 177 mg/dL (65-110); Magnesium 1.9 mg/dL (1.6-2.3); Potassium 3.6 mmol/L (3.4-5.0); Sodium 129 mmol/L (137-145)
[2022-11-06 06:47] LABS: Hemoglobin 13.1 g/dL (14.0-18.0); Mean Corpuscular HGB Conc 31.2 g/dl (32-36); Mean Corpuscular Hemoglobin 29.8 pg (26-34); Mean Corpuscular Volume 95.5 fl (80-100); Mean Platelet Volume 10.8 fl (7.4-10.4); Platelet Count Result 396 k/mm3 (150-375); Red Cell Distribution Width 14.5 % (11.5-14.5); White Blood Count 16.4 K/mm3 (4.5-10.0)
[2022-11-06] MEDS: GENTAMICIN SULFATE 0.1% CR 15 GM TUBE 1 APPLIC TOPICAL (08:52)
[2022-11-06] MEDS: ENOXAPARIN 40 MG/0.4 ML SYRINGE SUB-Q (08:52)
[2022-11-06] MEDS: MULTIVITAMINS /C LUTEIN (CENTRUM SILVER) TABLET *BKC 1 TAB PO (08:52)
--- NOTE | 2022-11-06 09:55 | PCNWS ---
Weekly nutritional screen. Patient is tolerating current regular diet with adequate intake at 100% of meals. No weight loss reported. No nutritional needs at this time.
--- NOTE | 2022-11-06 10:34 | PM.DS ---
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 The patient is edematous and it is oozing watery liquid.? The patient does not know how this occurred.? The patient has scabbed areas all over his arms.? The patient stated that he scratches often and may have scratched in areas to his lower extremity.? The patient stated he has been using topical antibiotics and wrapping his leg.? However in often times the bandage comes off or falls down.? He denies any fever chills.? His white count is 13.2.? The patient stated that he could no longer take the pain and that is when he decided to go to the urgent care.? He was prescribed Bactrim and doxycycline.? However he stated his leg was not getting any better.? The redness goes all the way up to his thigh.? The patient then decided to come to the emergency room for this today.? Patient's creatinine is 1.5.? His blood sugar was 133.? The patient was negative for influenza a B RSV and COVID.? The patient was started on Levaquin and Flagyl.? The patient is being admitted to inpatient status on the date of service 10/30/2022 Hospital Course: patient with a right lower leg erythmatous and edematous,? compared to left? lower extremity which? appears to be normal,? venous Doppler negative for DVT, patient does not have any history of cardiac however to further evaluate cardiac echo was done and which showed LV systolic EF 70% and grade 1 diastolic dysfunction, unlikely cardiac cause of left lower extremity edema, on 11/02? examined patient right lower extremity along anterior aspect superficial erosive ulcer with minimal drainage, wound dressing applied, would culture is growing pseudomonas rodriguez sensitive currently treated with Levofloxin and flagyl, blood culture no growth so far, on 11/03? patient white counts were climbing, discussed with ID pharmacy recommended to repeat the blood culture and further recommendation to follow suspect most likely,? repeat blood culture so far no growth, patient has lymphadenopathy will continue to monitor have PT OT evaluate the patient. on 11/04? examined the wound with his nurse and have wound team examine the wound which is improving, and recommended gentamicin ointment for the wound, today again discussed with the ID pharmacist if there is no growth on repeat blood culture, will discharge on 11/06.? patient remains clinically stable he has no new complaints will discharge the patient today Time Spent with Patient Time attestation: Total time spent providing and/or coordinating discharge services: Exam Narrative: ?morbidly obese Patient is comfortable, NAD HEENT: eyes are clear and none icteric LUNGS:CTA HEART: RR S1S2 ABD: BS+, Soft and nontender Lower extremities:? right lower extremity edematous and erythematous compared to left? lower extremity SKIN: nonjaundiced Neuro: grossly intact. DS: Data Data Completed and Pending Labs on day of discharge: Labs from last 24 hours 11/06/22 11/06/22 05:51 05:51 WBC 16.4 H RBC 4.40 L Hgb 13.1 L Hct 42.0 MCV 95.5 MCH 29.8 MCHC 31.2 L RDW 14.5 Plt Count 396 H MPV 10.8 H Sodium 129 L Potassium 3.6 Chloride 96 L Carbon Dioxide 29 Anion Gap 4 L BUN 6 L Creatinine 0.70 Estim Creat Clear Calc 172 Estimated GFR > 60 Glucose 177 H Calcium 7.7 L Magnesium 1.9 Preliminary micro results at discharge 11/03/22 16:24 Blood Culture - Preliminary Blood 11/03/22 14:27 Blood Culture - Preliminary Blood Discharge Plan Discharge Attending physician on discharge: Stephany Leo Consulting providers: Mary Wayne ; Gregg Elias ; Stewart Saucedo ; Gilmer Batres V. ; Mo
== END 2022-11-06 13:23 | disposition home or self-care (01) | DRG 383 ==
LOC: ANHED 18:04 → ANH3MEDSUR 20:44
PROVIDERS: Emergency Medicine; Nurse Practitioner; Admitting Provider Internal Medicine; Emergency Provider Emergency Medicine; Visit Provider Family Medicine
DX: L03.115 Cellulitis of right lower limb (principal); N17.9 Acute kidney failure, unspecified; E66.01 Morbid (severe) obesity due to excess calories; L97.919 Non-pressure chronic ulcer of unspecified part of right lower leg with unspecified severity; B96.5 Pseudomonas (aeruginosa) (mallei) (pseudomallei) as the cause of diseases classified elsewhere; I87.2 Venous insufficiency (chronic) (peripheral); Z20.822 Contact with and (suspected) exposure to COVID-19; D72.829 Elevated white blood cell count, unspecified; R03.0 Elevated blood-pressure reading, without diagnosis of hypertension; R00.0 Tachycardia, unspecified; R59.1 Generalized enlarged lymph nodes; F17.210 Nicotine dependence, cigarettes, uncomplicated; Z93.1 Gastrostomy status; Z68.41 Body mass index [BMI] 40.0-44.9, adult
CPT/HCPCS: 36415; 71046; 73701; 80048; 80053; 83605; 83735; 84443; 85025; 85027; 85652; 87040; 87070; 87077; 87186; 87205; 87637; 93971; 96365; 96368; 97161; 99285; A9270; C8929; J1650; J1956; J7120; Q9957; Q9967

== ENCOUNTER 2024-05-29 12:37 | Emergency (ER) | payer OTHER, SELFPAY ==
[2024-05-29 12:50] VITALS: BP 155/83; PULSE 97; RESP 16; TEMP 36.7; O2SAT 93
--- NOTE | 2024-05-29 14:11 | ED.ABDPAIN ---
HPI - Abdominal Pain General Chief Complaint: Abdominal Pain Stated Complaint: Skin Problem/Vomiting Source: patient Mode of arrival: ambulatory Limitations: no limitations History of Present Illness HPI narrative: Patient presents for evaluation of nausea and vomiting. He first experienced his symptoms 3 days ago. The symptoms improved the following day. He had recurrence yesterday. No change in bowel pattern. Last bowel movement was yesterday, solid and consistency and substantial in size. No blood or mucus in the stool. He denies any abdominal pain. Reports a bulging area noted to his abdomen. No fever chills. He does not consume alcohol regularly. No recent sick contacts to his knowledge. Related Data Home Medications Medication Instructions Recorded Confirmed ibuprofen 200 mg tablet 1,000 mg PO Q4H PRN Pain, Mild 10/30/22 10/30/22 magnesium citrate 125 mg capsule 125 mg PO BID 10/30/22 10/30/22 multivit with minerals-iron 18 1 tablet PO DAILY 10/30/22 10/30/22 mg-folic ac 400 mcg-vit K 25 mcg tablet (Adults Multivitamin) Allergies Allergy/AdvReac Type Severity Reaction Status Date / Time No Known Allergies Allergy Verified 05/29/24 12:48 Review of Systems Review of Systems: CONSTITUTIONAL: Denies fever, chills, or sweats. EYES: Denies visual changes, redness, or discharge. ENT: Denies rhinorrhea, congestion, sore throat, or otalgia. CARDIOVASCULAR: Denies chest pain, palpitations, or edema. RESPIRATORY: Denies cough or dyspnea. GASTROINTESTINAL: Reports a bulging appearance to the abdomen. Reports recent nausea and vomiting. Denies abdominal pain, constipation or diarrhea. GENITOURINARY: Denies dysuria or hematuria. SKIN: Denies rash or itching. MUSCULOSKELETAL: Denies back pain, joint pain, or myalgia. NEUROLOGIC: Denies headache, numbness, dizziness, or weakness. PSYCHIATRIC: Denies anxiety or depression. 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 He is and has 2 children. He continues to smoke 1-1 and half to 2 packs of cigarettes a day. Code status full code Smoking packs per day: 2 Smoking cigarettes per day: 40.0 Smoking status: Heavy tobacco smoker Second hand tobacco smoke exposure: No Alcohol intake: former Drinks per week: 3 Substance use: never Substance use type: does not use Lack of Transportation: No Lack of Food: Never True Current Housing: I Have Housing Concerned About Future Housing: No Difficulty Paying Gas/Electric Bills: No Difficulty Paying for Meds: No Currently Unemployed: No Education: High School Diploma/GED Difficulty w/ Childcare or Family Care: No Spiritual care concerns: No Exam Narrative: GENERAL: Well-appearing, well-nourished, and in no acute distress. HEAD: Normocephalic, atraumatic. EYES: PERRLA and EOMI. ENT: Nares clear, no rhinorrhea or epistaxis. Mucous membranes moist. Oropharynx without tonsillar hypertrophy exudate or other lesions. Bilateral TMs pearly kamara nonbulging NECK: Supple. No adenopathy or masses. No carotid bruits or JVD CHEST: Clear to auscultation. No respiratory distress. No wheezes rales or rhonchi HEART: Regular rate and rhythm. No murmur heard. Normal peripheral pulses. ABDOMEN: Soft, nontender, nondistended, normal active bowel sounds. There is a hernia present to the abdomen which is soft EXT
== END 2024-05-29 14:16 | disposition home or self-care (01) ==
PROVIDERS: Emergency Provider Nurse Practitioner
DX: K46.9 Unspecified abdominal hernia without obstruction or gangrene (principal); F17.210 Nicotine dependence, cigarettes, uncomplicated
CPT/HCPCS: 99211; G0463

== ENCOUNTER 2024-05-30 09:15 | Inpatient (IN) | payer OTHER, SELFPAY ==
[2024-05-30] VITALS (18 sets, daily range): BP systolic 126–153; BP diastolic 69–86; PULSE 75–101; RESP 13–20; TEMP 36.2–37.2; O2SAT 85–100; BMI 43.9
--- NOTE | ~2024-05-30 | CT_ITS ---
EXAMINATION: CTA chest PE protocol DATE: 05/30/2024 15:38 INDICATION: Hypoxia. Elevated d-dimer. TECHNIQUE: Computed tomography (CT) pulmonary angiogram of the chest was performed with 100 mL Omnipa que-350 intravenous contrast. Additional 3D reconstructions utilizing coronal maximum intensity proje ction (MIP) were performed. Automated exposure control and iterative reconstruction technique were em ployed. The dose-length product was 1133.68 mGy-cm. COMPARISON: None FINDINGS: No pulmonary embolism. There is mosaic attenuation throughout both lungs with diffuse groundglass opa city with corresponding small bilateral lung volumes and bronchovascular crowding which along with th e ground glass opacities appears increased since the prior study consistent with atelectasis and expi ratory phase of imaging. There are subsegmental regions of more lucent air trapping likely related to small airway disease, one of which in the posterior segment of the right upper lobe contains a clust er of associated small calcified nodules which along with a few calcified mediastinal lymph nodes are consistent with sequela of old granulomatous disease. No pleural effusion or pneumothorax. Heart siz e is normal. No pericardial effusion. Thoracic aorta is normal in caliber with no dissection. No path ologically enlarged thoracic lymphadenopathy. Diffuse hepatic steatosis. Region of cortical scarring at the right kidney. Likely gallstone at the dependent neck of the otherwise normal-appearing gallbla dder. IMPRESSION: 1. No pulmonary embolism. 2. Diffuse mosaic attenuation with extensive groundglass opacity throughout both lungs likely related to atelectasis with scattered subsegmental regions of more lucent likely air trapping related to sma ll airway disease. 3. Cholelithiasis. Reviewed, dictated and finalized at location A. IMPRESSION: 1. No pulmonary embolism. 2. Diffuse mosaic attenuation with extensive groundglass opacity throughout bot h lungs likely related to atelectasis with scattered subsegmental regions of mo re lucent likely air trapping related to small airway disease. 3. Cholelithiasis.
--- NOTE | ~2024-05-30 | US_ITS ---
BILATERAL LOWER EXTREMITY VENOUS ULTRASOUND Ordering provider: Angelina Padilla MD History: . b/l edema LEs, elevated d dimer . Comparison: None. FINDINGS: RIGHT LOWER EXTREMITY VEINS: --COMMON FEMORAL: Patent and free of thrombus. Normal compressibility, phasic flow and augmentation. --PROXIMAL SUPERFICIAL FEMORAL: Patent and free of thrombus. Normal compressibility, phasic flow and augmentation. --DISTAL SUPERFICIAL FEMORAL: Patent and free of thrombus. Normal compressibility, phasic flow and au gmentation. --POPLITEAL: Patent and free of thrombus. Normal compressibility, phasic flow and augmentation. --POSTERIOR TIBIAL: Patent and free of thrombus. Normal compressibility, phasic flow and augmentation . LEFT LOWER EXTREMITY VEINS: --COMMON FEMORAL: Patent and free of thrombus. Normal compressibility, phasic flow and augmentation. --PROXIMAL SUPERFICIAL FEMORAL: Patent and free of thrombus. Normal compressibility, phasic flow and augmentation. --DISTAL SUPERFICIAL FEMORAL: Patent and free of thrombus. Normal compressibility, phasic flow and au gmentation. --POPLITEAL: Patent and free of thrombus. Normal compressibility, phasic flow and augmentation. --POSTERIOR TIBIAL: Patent and free of thrombus. Normal compressibility, phasic flow and augmentation . IMPRESSION: Negative bilateral lower extremity venous US. No deep vein thrombosis. Reviewed, dictated and finalized at location A.
--- NOTE | ~2024-05-30 | XR_ITS ---
EXAMINATION: XR chest 1V portable DATE: 05/31/2024 12:41 INDICATION: Infiltrates. TECHNIQUE: A single frontal view of the chest was obtained. COMPARISON: Chest 2 views 11/03/2022, chest CT 05/30/2024 FINDINGS: There is no pneumonia, pleural effusion, or pneumothorax. The heart size is normal. IMPRESSION: 1. No acute cardiopulmonary disease. Reviewed, dictated and finalized at location A.
--- NOTE | ~2024-05-30 | CT_ITS ---
EXAMINATION: CT abdomen pelvis w con DATE: 05/30/2024 12:05 INDICATION: Bilious emesis TECHNIQUE: Computed tomography (CT) of the abdomen and pelvis was performed with 100 mL Omnipaque-350 intravenous contrast. Automated exposure control and iterative reconstruction technique were employe d. The dose-length product was 1606.83 mGy-cm. COMPARISON: None FINDINGS: Lung bases are clear. Heart size is normal. No pericardial or pleural effusion. Mild bilateral gyneco mastia. Diffuse hepatic steatosis with more focal hepatic steatosis at the ligamentum teres and some focal fatty sparing along the gallbladder fossa. Small stone at the neck of the normal-appearing gall bladder. Spleen, pancreas, right adrenal gland and left kidney are normal. 9 mm low-attenuation left adrenal adenoma. Diffuse mild right renal atrophy with several more focal regions of scarring with se sergio atrophy. 3 mm other dystrophic parenchymal calcification versus nonobstructing renal stone howev er the region of scarring at the upper pole of the right kidney. Short segment of small bowel extends partially into a small supraumbilical ventral hernia. Very small umbilical hernia containing fat and minimal amount of ascites with additional with small amount of likely reactive ascites scattered phyllis ng the mesentery in the abdomen and pelvis. There are fluid filled loops of small bowel without aida dilation or transition point to suggest obstruction. Suggestion of some wall/mucosal fold thickening along multiple loops of ileum in the right lower quadrant suggesting an enteritis. Colon and appendi x are normal. Bladder is normal. Prostate is unremarkable. No abscess or free intraperitoneal gas. No pathologically enlarged abdominal or pelvic lymphadenopathy. Mild lower thoracic spondylosis. IMPRESSION: 1. Fluid-filled loops of small bowel with wall/mucosal fold thickening with multiple loops of distal ileum suggesting an enteritis could be infectious or inflammatory in etiology. 2. Small umbilical and supraumbilical hernias, the former containing a minimal amount of likely react sharmin ascites and the latter partially occluding a small loop of nonobstructed small bowel. 3. diffuse hepatic steatosis. 4. Cortical scarring at the right kidney with 3 mm nonobstructing stone versus dystrophic parenchymal calcification. 5. Cholelithiasis. Reviewed, dictated and finalized at location A. IMPRESSION: 1. Fluid-filled loops of small bowel with wall/mucosal fold thickening with mul tiple loops of distal ileum suggesting an enteritis could be infectious or infl ammatory in etiology. 2. Small umbilical and supraumbilical hernias, the former containing a minimal amount of likely reactive ascites and the latter partially occluding a small lo op of nonobstructed small bowel. 3. diffuse hepatic steatosis. 4. Cortical scarring at the right kidney with 3 mm nonobstructing stone versus dystrophic parenchymal calcification. 5. Cholelithiasis.
--- NOTE | 2024-05-30 11:01 | ED.NAVMDI ---
HPI - Nausea/Vomiting/Diarrhea General Chief complaint: Nausea/Vomiting/Diarrhea Stated complaint: possible hernia and vomiting Time Seen by Provider: 05/30/24 10:42 Source: patient Mode of arrival: ambulatory Limitations: no limitations History of Present Illness HPI Narrative: Patient presents with report of vomiting of several days duration. He states he has had 4 episodes of emesis in the last 24 hours. His last oral intake was 817 and he has been unable to keep anything else down. He did visit in urgent care on 05/29/2024 and was told he might have possible hernia. He lives by himself and denies any sick contacts. He states the emesis has been nonbloody. He states it is been bile but when asked, denies it being green. However, just after he tells me this he does note that he has to vomit and has a large volume bilious emesis. He denies any prior abdominal surgery. His last bowel movement was Thursday reportedly normal without blood or diarrhea. Related Data Home Medications Medication Instructions Recorded Confirmed ibuprofen 200 mg tablet 1,000 mg PO Q4H PRN Pain, Mild 10/30/22 10/30/22 magnesium citrate 125 mg capsule 125 mg PO BID 10/30/22 10/30/22 multivit with minerals-iron 18 1 tablet PO DAILY 10/30/22 10/30/22 mg-folic ac 400 mcg-vit K 25 mcg tablet (Adults Multivitamin) Allergies Allergy/AdvReac Type Severity Reaction Status Date / Time No Known Allergies Allergy Verified 05/30/24 09:21 [facility] Past Medical History Medical History (Updated 05/30/24 @ 17:41 by Yesica Bose MD) Cholelithiasis Hepatic steatosis Tobacco dependence Surgical History Surgical History (Updated 05/30/24 @ 17:27 by Chanda Valenzuela PA-C) History of chest tube placement History of gastrostomy tube placement History of tracheostomy Family History Family History Father Alcoholism Social History Social History (Updated 05/30/24 @ 11:24 by Yesica Bose MD) Social History: 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 He is and has 2 children. He continues to smoke 1-1 and half to 2 packs of cigarettes a day. Code status full code Smoking packs per day: 2 Smoking cigarettes per day: 40.0 Smoking status: Heavy tobacco smoker Second hand tobacco smoke exposure: No Alcohol intake: former Drinks per week: 3 Substance use: never Substance use type: does not use Lack of Transportation: No Lack of Food: Never True Current Housing: I Have Housing Concerned About Future Housing: No Difficulty Paying Gas/Electric Bills: No Difficulty Paying for Meds: No Currently Unemployed: No Education: High School Diploma/GED Difficulty w/ Childcare or Family Care: No Living arrangements: alone Spiritual care concerns: No Exam Narrative: GENERAL: Well-appearing, well-nourished, and in no acute distress. HEAD: Normocephalic, atraumatic. EYES: Non injected, non icteric ENT: Nares clear, no rhinorrhea or epistaxis. NECK: Supple. CHEST: Speaking in full sentences. No respiratory distress. Expiratory wheezes, particularly at bases. HEART: Regular rate and rhythm. . ABDOMEN: Soft, mildly distended. Patient has easily reducible umbilical hernia without overlying skin changes. Patient is noted to have large volume bilious emesis at bedside. EXTREMITIES: Normal range of motion. No lower extremity edema. SKIN: Warm, dry, no rash. NEURO: No focal deficits. Alert and oriented x3. PSYCH: Normal mood and affect. Course Vital Signs Vital signs: Vital Signs Temperature 98.2 F 05/30/24 09:17 Pulse Rate 101 H 05/30/24 09:17 Respiratory Rate 16 05/30/24 09:17 Blood Pressure 153/86 H 05/30/24 09:17 Pulse Oximetry 94 05/30/24 09:17 Oxygen Delivery Room Air 05/30/24 09:17 Temperature 98.2 F 05/30/24 09:17 Pulse Rate 96
[2024-05-30 11:33] LABS: Basophils Absolute Auto 0.1 K/mm3 (0.0-0.1); Basophils Percent Auto 0.4 % (0.2-1.2); Eosinophils Absolute Auto 0.4 K/mm3 (0-0.3); Eosinophils Percent Auto 3.4 % (0-4.4); Hemoglobin 17.5 g/dL (14.0-18.0); Immature Granulocyte Absolute 0.07 K/mm3 (0.00-0.031); Immature Granulocyte Percent A 0.6 % (0-0.5); Lymphocytes Absolute Auto 0.83 K/mm3 (0.9-3.2); Lymphocytes Percent Auto 7.2 % (18.3-44.2); Mean Corpuscular HGB Conc 33.7 g/dl (32-36); Mean Corpuscular Hemoglobin 32.3 pg (26-34); Mean Corpuscular Volume 95.9 fl (80-100); Mean Platelet Volume 11.8 fl (7.4-10.4); Neutrophils Absolute Auto 9.1 K/mm3 (1.3-6.7); Neutrophils Percent Auto 79.4 % (45.5-73.1); Platelet Count Result 186 k/mm3 (150-375); Red Blood Count 5.42 M/mm3 (4.6-6.20); Red Cell Distribution Width 13.2 % (11.5-14.5); White Blood Count 11.5 K/mm3 (4.5-10.0)
[2024-05-30 11:43] LABS: Alanine Aminotransferase 43 U/L (6-50); Albumin Level 4.4 g/dL (3.5-5.1); Alkaline Phosphatase 113 U/L (38-126); Anion Gap 8 mmol/L (4-12); Aspartate Amino Transferase 51 U/L (17-59); Bilirubin,Total 0.9 mg/dL (0.2-1.3); Blood Urea Nitrogen 13 mg/dL (9-20); Calcium 9.2 mg/dL (8.4-10.2); Carbon Dioxide 34 mmol/L (22-30); Chloride 95 mmol/L (98-107); Estimated CRCL calculation 152 ml/min; Estimated Glomerular Filt Rate > 60; Glucose 106 mg/dL (65-110); Lactic Acid Reflex 1.3 mmol/L (0.7-2.0); Lipase 74 U/L (23-300); Magnesium 1.9 mg/dL (1.6-2.3); Potassium 3.6 mmol/L (3.4-5.0); Sodium 137 mmol/L (137-145)
[2024-05-30] MEDS: ONDANSETRON INJ 4 MG/2 ML VIAL IV PUSH (11:55)
[2024-05-30] MEDS: SODIUM CHLORIDE 0.9% IV 1,000 ML 999 ML IV CONT (11:55)
--- NOTE | 2024-05-30 11:59 | PC.NURSE ---
Pt provided with urinal for urine sample. Pt educated on sample collection.
[2024-05-30 12:11] LABS: Influenza A QL RT-PCR Negative (Negative); Influenza B QL RT-PCR Negative (Negative); SARS-CoV-2 RNA PCR Negative (Negative)
--- NOTE | 2024-05-30 12:29 | PC.NURSE ---
Pt sitting in bed resting comfortably with no complaints, pt oxygen saturation at 85%. Pt repositioned up in bed, encouraged to take deep breaths and oxygen increased to 94%. Pt did not maintain oxygen at 94% and oxygen decreased back down to 85%. Pt placed on 2L NC and oxygen increased and maintained at 99%. made aware.
[2024-05-30 12:56] LABS: Add Urine Microscopic? YES; Appearance Urine Cloudy (Clear); Bacteria Urine None Seen /hpf; Bilirubin Urine Negative (Negative); Blood Urine Negative (Negative); Calcium Oxalate Crystals Urine Present /hpf; Color Urine Dark Yellow (Yellow); Glucose Urine UA Negative (Negative); Ketones Urine Trace mg/dL (Negative); Leukocyte Esterase Ur Negative LEU/UL (Negative); Need Manual Microscopic Reviewed; Nitrate Urine Negative (Negative); Non Pathogenic Casts 0-2; Protein Urine 1+ mg/dL (Negative); Specific Grav Ur 1.039 (1.001-1.035); Squamous Epithelial Cell Urine None Seen /hpf (Few); WBC Urine 0-5 /hpf (0-3); pH Urine 5.5 (5.0-9.0)
[2024-05-30] MEDS: IPRATROPIUM 0.5 MG/ALBUTEROL SULFATE 2.5 MG AMPUL.NEB 3 ML INHALATION (13:50)
[2024-05-30] MEDS: ALBUTEROL SULFATE NEB 2.5 MG/3 ML INH INHALATION (13:50)
[2024-05-30] MEDS: predniSONE 20 MG TABLET 40 MG PO (13:50)
--- NOTE | 2024-05-30 14:19 | PC.NURSE ---
this RN noticed pt O2 at 82%. Pt placed on 2L NC
[2024-05-30 14:48] LABS: Alveolar/Arterial O2 Gradient 72.5 mmHg; Base Excess ABG 5.5 mEq/l (+/-2.0); Fractional Inspired Oxygen 28 %; HCO3 ABG 30.9 mEq/l (22.0-26.0); Oxygen Content ABG 20.4 %vol (16.0-22.0); Oxygen Saturation ABG 94.7 % (95.0-100.0); PCO2 ABG 47.3 mmHg (35.0-45.0); PO2 ABG 71.3 mmHg (80.0-100.0); PO2 FiO2 Ratio Arterial Blood 2.55 %; Total Hemoglobin 16.9 g/dL (12.0-18.0); pH ABG 7.433 (7.350-7.450)
[2024-05-30 14:50] LABS: Device NASAL CANNULA; Modified Allen's Test Pass; Oxyhemoglobin 86.1 % THb (90.0-100.0); Site Drawn LEFT RADIAL
[2024-05-30 15:12] LABS: D Dimer 5.66 ug/mL (<0.48)
[2024-05-30 15:15] LABS: NT Pro B Type Natriuretic Pept 27 pg/mL (19.9-100)
--- NOTE | 2024-05-30 16:29 | PC.NURSE ---
Dr. Bose attempted to wean pt off NC oxygen. Pt oxygen dropped back down to 86% on room air. Pt placed back on 2L NC.
--- NOTE | 2024-05-30 17:25 | PM.IMHP ---
H&P: HPI History of Present Illness Date/Time: 05/30/24 17:25 Chief Complaint: Vomiting. Narrative: This is a 43-year-old male smoker who presented to the emergency department for evaluation of vomiting. The patient provides the following history. He was seen in urgent care yesterday for a 3 day history of nausea and emesis and was concerned for a possible hernia as he noticed a small bulge in the abdomen. He was without pain at that time and was referred to general surgery for an outpatient consultation. Yesterday he had multiple episodes of green bilious emesis and mild discomfort around a periumbilical hernia and he returned to the ED. He denies fever, chest pain, pleuritic pain, cough, congestion, sore throat, hematemesis, dysuria, diarrhea, and current abdominal pain. He has no known sick contacts. He is not on oxygen at home and has no known history of COPD or other lung disease. He denies sleep apnea and concerns for the same. In the ED: He was afebrile on arrival with stable blood pressures. SpO2 was 85% on room air with a good pleth any is currently on 2 L nasal cannula. Chest CTA showed no pulmonary embolism but did note diffuse mosaic attenuation with extensive ground-glass opacities throughout both lungs likely related to atelectasis and scattered subsegmental regions more lucid like air trapping related to small airway disease. CT of the abdomen pelvis showed fluid-filled loops of small bowel with wall/mucosal fold thickening with multiple loops of distal ileum suggesting enteritis, small umbilical and supraumbilical hernias, diffuse hepatic steatosis, cholelithiasis, a.m. cortical scarring at the right kidney with a 3 mm nonobstructing stone versus dystrophic parenchymal calcification. He received 1 L normal saline, ondansetron, and a DuoNeb. He is being admitted in this setting for further treatment and evaluation. Review of Systems Review of Systems: 12 systems were reviewed and are negative except for as per HPI. [facility] Past Medical History Medical History (Updated 05/30/24 @ 22:49 by Chanda Valenzuela PA-C) Cholelithiasis Hepatic steatosis Tobacco dependence Surgical History Surgical History History of chest tube placement History of gastrostomy tube placement History of tracheostomy Family History Family History Father Alcoholism Grandparent Cancer Grandparent Cancer Mother Cerebrovascular accident Social History Social History (Updated 05/30/24 @ 22:42 by Chanda Valenzuela PA-C) Social History: Surrogate medical decision maker: Adam Ardon, friend. Code status: Full code. Smoking packs per day: 2 Smoking cigarettes per day: 40.0 Years smoked: 32 Smoking pack-years: 64.00 Smoking status: Current every day smoker Second hand tobacco smoke exposure: No Alcohol intake: former Drinks per week: 15 Substance use: current Substance use type: does not use Do You Feel Safe in your Home?: Yes Lack of Transportation: No Lack of Food: Never True Current Housing: I Have Housing Concerned About Future Housing: No Difficulty Paying Gas/Electric Bills: No Difficulty Paying for Meds: No Currently Unemployed: No Education: Decline to Answer Difficulty w/ Childcare or Family Care: No Living arrangements: alone Additional living arrangements comments: with 2 children. 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 Spiritual care concerns: No Meds Home Medications and Allergies Home Medications Medication Instructions Recorded Confirmed Type ibuprofen 200 mg tablet 1,000 mg PO Q4H PRN Pain, Mild 10/30/22 05/30/24 History magnesium citrate 125 mg capsule 500 mg PO DAILY 10/30/22 05/30/24 History multivit with minerals-iron 18 1 tablet PO DAILY 10/30/22 05/30/24 History mg-folic ac 400 mcg-vit K 25 mcg
--- NOTE | 2024-05-30 17:53 | ADMGEN ---
This patient, Jean Gongora, was admitted to 3 Med Surg Room 304-02. Patient/family oriented to hospital policies and general routines including ID bracelet, bed and alarms, visiting hours, pain management, procedures, bathroom and other care routines, personal items, smoking policy, room service/diet, and visiting hours. Information on how to activate the Rapid Response Team has been discussed. Patient/Family are encouraged to report perceived risks to care and to ask questions if they do not understand what they are told or what they should do.
--- NOTE | 2024-05-30 23:11 | PCRCNOTE ---
Pt denied apnea link screening for SANDEEP being completed the night of 05/30/2024. Pt states he will not complete the study and will not wear a cpap machine if he would need one. RT informed the patient of the benefits of wearing a cpap if the patient is requiring one. Pt still refused the apnea link study. RN aware.
[2024-05-31] VITALS (12 sets, daily range): BP systolic 112–147; BP diastolic 72–86; PULSE 69–107; RESP 16–20; TEMP 36.4–37.4; O2SAT 92–95
--- NOTE | 2024-05-31 | ECHO_ITS ---
Patient Info Name: Jean Gongora Age: 43 years : 1980 Gender: Male Ht: 72 in Wt: 320 lbs BSA: 2.78 m2 HR: 90 bpm Heart Rhythm: Sinus Rhythm Technical Quality: Poor Exam Date: 05/31/2024 11:55 AM Exam Location: Echo Lab Patient Status: Inpatient Admit Date: 05/30/2024 Staff Ordering Physician: Angelina Padilla MD Pharmacognosy Teacher: Salima Regalado RDCS Attending Provider: Humphrey Centeno MD Exam Type: CA echo dop color flow w con Study Info Indications R60.9 - Edema, unspecified J96.90 - Respiratory failure, unspecified, unspecified whether with hypoxia or hypercapnia Complete two-dimensional, color flow and Doppler transthoracic echocardiogram is performed with contrast to opacify the left ventricle and to improve the deliniation of the left ventricle endocardial borders. Contrast/Agitated Saline Contrast/Ag. Saline: Definity Amount: 5.00 ml IV Access Condition: patent with no signs of infiltration Reason for Poor Study: patient body habitus Summary 1. Technically difficult study with limited views. 2. Left ventricular chamber dimension is normal. 3. Left ventricular systolic function is normal, estimated at 65-70%. 4. There is mildly increased left ventricular wall thickness. 5. The left ventricular diastolic function is grade I diastolic dysfunction. 6. Right ventricular systolic function is normal. 7. There is mild tricuspid valve regurgitation. Left Ventricle Left ventricular chamber dimension is normal. Left ventricular systolic function is normal, estimated at 65-70%. There is mildly increased left ventricular wall thickness. The left ventricular diastolic function is grade I diastolic dysfunction. Right Ventricle Right ventricular chamber dimension is normal. Right ventricular systolic function is normal. Left Atria Left atrial chamber dimension is normal. Right Atria Right atrial chamber dimension is normal. Atrial Septum Intact interatrial septum visualized by color flow imaging. Aortic Valve The aortic valve is not well visualized. There is no aortic valve stenosis. There is no aortic valve regurgitation. Pulmonic Valve The pulmonic valve is not well visualized. Mitral Valve There is trace mitral valve regurgitation. Tricuspid Valve There is mild tricuspid valve regurgitation. Pericardium/Pleural The pericardium appears epicardial fat pad. There is no pericardial effusion. Inferior Vena Cava Inferior vena cava is not well visualized. Aorta The aortic root size at the sinus of Valsalva is normal. Left Ventricular Outflow Tract Name Value Normal LVOT 2D LVOT Diameter 2.08 cm LVOT Doppler LVOT Peak Velocity 131.75 cm/s LVOT Peak Gradient 7 mmHg LVOT Mean Gradient 4 mmHg LVOT VTI 27.59 cm LVOT VTI/AV VTI Ratio 1.08 LVOT Stroke Volume 93.54 ml LVOT CO 7.52 l/min LVOT CI 2.70 L/min/m2 Pulmonic Valve Name
[2024-05-31] MEDS: IPRATROPIUM 0.5 MG/ALBUTEROL SULFATE 2.5 MG AMPUL.NEB 3 ML INHALATION ×2 (02:16→08:00)
[2024-05-31 06:50] LABS: Hematocrit 51.9 % (42.0-52.0); Hemoglobin 16.8 g/dL (14.0-18.0); Mean Corpuscular HGB Conc 32.4 g/dl (32-36); Mean Corpuscular Volume 98.9 fl (80-100); Mean Platelet Volume 11.5 fl (7.4-10.4); Platelet Count Result 191 k/mm3 (150-375); Red Blood Count 5.25 M/mm3 (4.6-6.20); Red Cell Distribution Width 13.1 % (11.5-14.5); White Blood Count 10.3 K/mm3 (4.5-10.0)
[2024-05-31 07:03] LABS: Anion Gap 7 mmol/L (4-12); Blood Urea Nitrogen 11 mg/dL (9-20); Calcium 8.8 mg/dL (8.4-10.2); Carbon Dioxide 38 mmol/L (22-30); Chloride 95 mmol/L (98-107); Estimated CRCL calculation 150 ml/min; Estimated Glomerular Filt Rate > 60; Glucose 102 mg/dL (65-110); Magnesium 2.3 mg/dL (1.6-2.3); Potassium 4.8 mmol/L (3.4-5.0); Sodium 140 mmol/L (137-145)
[2024-05-31 07:28] LABS: Procalcitonin 0.1 ng/mL
[2024-05-31] MEDS: ENOXAPARIN 40 MG/0.4 ML SYRINGE SUB-Q (08:52)
--- NOTE | 2024-05-31 11:29 | PM.CNPUL ---
Assessment and Plan Assessment and plan (1) Abnormal CT scan of lung: Code(s): R91.8 - Other nonspecific abnormal finding of lung field Status: Acute Assessment and Plan: Patient had a normal chest x-ray on 11/03/2022. He has no respiratory limitations in his activities of daily living. He has no history of asthma, COPD, bronchitis or interstitial lung disease. He has never required oxygen previously. The patient presents with vomiting but no recollection of any aspiration. His white blood cell count was 11.5, his procalcitonin 0.1, eosinophils 3.4%. His COVID and influenza RT PCR negative. His BNP was 27. D-dimer was positive and CT angiogram of the chest was negative for PE but demonstrated diffuse ground-glass infiltrates with some mosaic attenuation. His oxygenation is improved and I have turned him to room air with saturations 90-91%. Etiology of patient's ground-glass infiltrates: Aspiration pneumonitis, negative pressure pulmonary edema, respiratory viral infection, interstitial lung disease. Plan: I will check a chest x-ray as noted was performed in the emergency room. I will send the respiratory pathogen panel looking for alternate infectious etiologies. Echocardiogram will be performed to assess LV function, RV function, valvular function and pulmonary pressures. No evidence of a bacterial infection and at this time I do not feel he needs antibiotics from a pulmonary perspective. Goal saturation 90-94%. I will order an overnight oximetry on room air. Discussed with Dr Padilla, will follow with you. (2) Tobacco dependence: Code(s): F17.200 - Nicotine dependence, unspecified, uncomplicated Status: Acute Assessment and Plan: Patient with a 49 pack year tobacco use. CT scan shows no concerning masses or nodules. Plan: Tobacco cessation counseling provided. History of Present Illness History of Present Illness Consult date: 05/31/24 Chief complaint: Hypoxia Requiring Supplemental O2/Also Dx Enteriti Narrative: 05/31/2024: This is a new pulmonary consult for ground-glass infiltrates and hypoxemia. 43-year-old with no previous respiratory conditions. He denies history of asthma, COPD or oxygen needs. He has no respiratory limitations in his activities of daily living although he is rather sedentary. He says he can walk 2 blocks without having to stop for breathing. He says he occasionally has wheezing. the patient has a chronic cough for 10 years at 10 times a day that is dry without any hemoptysis or phlegm production. The patient has smoked tobacco from age 10 to current at 1 and half packs per day for total of 49 pack years. Patient was exposed to secondhand smoke from both of his parents. The patient denies vaping, illicit drug use. 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 The patient presented to the hospital on 05/30/2024 with 3 days history of intermittent vomiting. The patient states he had no recollection of aspirating any of the vomiting. He denies any heavy gagging. He denied fever, chills, rigors, shortness of breath, Change in his chronic cough, phlegm production, hemoptysis or chest pain. Patient presented to the emergency room and saturations were 85% on room air. His D-dimer was positive. His white blood cell count was 11.5, his hemoglobin was 17.5, creatinine 0.8, serum bicarbonate 34. 2 L ABG 7.43/47/72. COVID and influenza RT PCR negative. CT angiogram of the chest showed no PE, diffuse ground-glass infiltrates throughout all lung caicdeo with no consolidations or masses. There was mosaic attenuation. 05/31/2024: White blood cell count 10.3. When I enter the room he was on 2 L nasal cannula saturations 97%. I decreased him to room air and after 16 minutes his saturations were 90-91%. He denies fever, chills, rigors, change in his cough, phlegm produc
[2024-05-31] MEDS: ACETAMINOPHEN 325 MG TABLET 650 MG PO (13:21)
[2024-05-31] MEDS: PERFLUTREN LIPID MICROSPHERES 1.5 ML VIAL DILUTED TO 10 ML TOTAL VOLUME IV PUSH (16:07)
--- NOTE | 2024-05-31 16:07 | IVDEFINITY ---
Prior to administration of IV Definity the patient was educated on the risks and benefits of the imaging enhancing agent including potential adverse side effects. The patient verbalized understanding. Allergies were verified. No exclusion criteria were identified and at least one of the following inclusion criteria were met: 1) physician request, 2) patient technically difficult to image (per the [place] [employer] guidelines of two or more segments not discernable within the apical view), or 3) questionable left ventricular function. ?
--- NOTE | 2024-05-31 16:18 | PM.IMPN ---
Progress Note: A&P Assessment and Plan (1) Nicotine dependence: Code(s): F17.200 - Nicotine dependence, unspecified, uncomplicated Status: Acute (2) Encounter for smoking cessation counseling: Code(s): Z71.6 - Tobacco abuse counseling Status: Acute (3) Umbilical hernia: Code(s): K42.9 - Umbilical hernia without obstruction or gangrene Status: Acute (4) Bilious emesis: Code(s): R11.14 - Bilious vomiting Status: Acute (5) Leukocytosis: Code(s): D72.829 - Elevated white blood cell count, unspecified Status: Acute (6) Enteritis: Code(s): K52.9 - Noninfective gastroenteritis and colitis, unspecified Status: Acute (7) Hypoxia: Code(s): R09.02 - Hypoxemia Status: Acute Plan Agree with pulmonology consultation. Continue to monitor along with chest x-ray, [facility]nea[facility]. Possibly aspirated. He is also very large. Checking respiratory viral pathogen panel, possible negative pressure pulmonary edema, interstitial lung disease. His vomiting is mostly resolved. Suspect due to alcohol and ibuprofen use and enteritis. Educated about the dangers of ibuprofen. He has been taking 1000 mg of ibuprofen 2 to 4 times a day for all of his life. Presently he is not had a serious gastric ulcer/gastric bleed yet. His kidney function appears to be okay. In the setting we will add Protonix 40 mg p.o. q.a.m. 7 take that while stopping ibuprofen. We will try Tylenol, lidocaine patch, tramadol. His umbilical hernia does not seem to be causing his pain. Admission. He is currently painless. Educated about tobacco use. 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 Educated about the dangers of binge drinking. He has lower extremity edema and type Oxy a. His BMP was okay but we will check a surface echocardiogram. Also check lower extremity Dopplers given that his D-dimer is high. Full code Lovenox 40 mg subQ q.day Subjective Date/time seen: 05/31/24 16:18 Interval history: No acute overnight events. Patient reports he is able the breakfast without vomiting. Review of Systems Review of Systems: All systems reviewed & are unremarkable except as noted in HPI and below (Subjective) Exam Const: General: comfortable and no acute distress Other: Obese Eyes: Pupils: Equal, round and reactive pupils present Neck: Neck: supple Resp: Effort & Inspection: normal respiratory effort Auscultation: clear to auscultation bilaterally Cardio: Rate: regular rate Rhythm: regular rhythm GI: GI Palp: Yes Soft to palpation and No Tenderness to palpation present (GI) Other: Reducible umbilical hernia. No pain on palpation. Extrem: Other: Thickened subcutaneous tissue. Trace pitting edema. Objective Data Vital Signs Vital Signs: Vital Signs - 24 hr 05/30/24 16:30 05/30/24 17:53 05/30/24 20:00 Temperature 98.9 F 97.2 F L Pulse Rate 96 75 100 Respiratory Rate 20 18 20 Blood Pressure 127/79 131/79 130/69 Pulse Oximetry 95 98 94 Oxygen Delivery Oxygen Flow Rate 05/30/24 20:00 05/30/24 20:00 05/31/24 00:00 Temperature Pulse Rate 92 94 Respiratory Rate Blood Pressure Pulse Oximetry Oxygen Delivery Room Air Oxygen Flow Rate 05/31/24 02:18 05/31/24 02:24 05/31/24 04:00 Temperature Pulse Rate 95 73 75 Respiratory Rate 16 16 Blood Pressure Pulse Oximetry Oxygen Delivery Oxygen Flow Rate 05/31/24 06:00 05/31/24 08:00 05/31/24 08:00 Temperature 99.4 F Pulse Rate 107 H 70 Respiratory Rate 18 16 Blood Pressure 112/72 Pulse Oximetry 95 92 Oxygen Delivery Nasal Cannula Oxygen Flow Rate 2 05/31/24 08:07 05/31/24 08:00 05/31/24 14:00 Temperature 98.4 F Pulse Rate 74 69 76 Respiratory Rate 16 20 Blood Pressure 147/86 H Pulse Oximetry 93 Oxygen Delivery Oxygen Flow Rate Intake/Output Intake/Output: I
[2024-05-31] MEDS: traMADol HCL (*CRX) 50 MG TABLET PO (16:53)
[2024-05-31] MEDS: PANTOPRAZOLE 40 MG TABLET PO (16:55)
--- NOTE | 2024-05-31 22:17 | PCRCNOTE ---
Patient refused sleep study.
[2024-06-01] VITALS: PULSE 85
[2024-06-01] MEDS: traMADol HCL (*CRX) 50 MG TABLET PO (00:40)
[2024-06-01 04:00] VITALS: PULSE 91
[2024-06-01 06:00] VITALS: BP 127/72; PULSE 90; RESP 20; TEMP 36.3; O2SAT 92
[2024-06-01 06:36] LABS: Hematocrit 48.9 % (42.0-52.0); Hemoglobin 16.1 g/dL (14.0-18.0); Mean Corpuscular HGB Conc 32.9 g/dl (32-36); Mean Corpuscular Hemoglobin 32.4 pg (26-34); Mean Corpuscular Volume 98.4 fl (80-100); Mean Platelet Volume 11.8 fl (7.4-10.4); Platelet Count Result 165 k/mm3 (150-375); Red Blood Count 4.97 M/mm3 (4.6-6.20)
[2024-06-01 06:56] LABS: Sodium 136 mmol/L (137-145)
[2024-06-01 06:57] LABS: Anion Gap 8 mmol/L (4-12); Blood Urea Nitrogen 11 mg/dL (9-20); Calcium 8.1 mg/dL (8.4-10.2); Carbon Dioxide 31 mmol/L (22-30); Chloride 97 mmol/L (98-107); Estimated CRCL calculation 150 ml/min; Estimated Glomerular Filt Rate > 60; Glucose 87 mg/dL (65-110); Potassium 3.8 mmol/L (3.4-5.0)
[2024-06-01 07:31] LABS: Procalcitonin 0.1 ng/mL
[2024-06-01 08:00] VITALS: PULSE 91
[2024-06-01] MEDS: ENOXAPARIN 40 MG/0.4 ML SYRINGE SUB-Q (08:48)
[2024-06-01] MEDS: LIDOCAINE 5% PATCH 1 PATCH TRANSDERM (08:49)
[2024-06-01] MEDS: PANTOPRAZOLE 40 MG TABLET PO (08:49)
--- NOTE | 2024-06-01 09:39 | PM.PNPUL ---
Progress Note: A&P Assessment and Plan (1) Abnormal CT scan of lung: Code(s): R91.8 - Other nonspecific abnormal finding of lung field Status: Acute Assessment and Plan: Patient had a normal chest x-ray on 11/03/2022. He has no respiratory limitations in his activities of daily living. He has no history of asthma, COPD, bronchitis or interstitial lung disease. He has never required oxygen previously. The patient presents with vomiting but no recollection of any aspiration. His white blood cell count was 11.5, his procalcitonin 0.1, eosinophils 3.4%. His COVID and influenza RT PCR negative. His BNP was 27. D-dimer was positive and CT angiogram of the chest was negative for PE but demonstrated diffuse ground-glass infiltrates with some mosaic attenuation. His oxygenation is improved and I have turned him to room air with saturations 90-91%. Etiology of patient's ground-glass infiltrates: Aspiration pneumonitis, negative pressure pulmonary edema, respiratory viral infection, interstitial lung disease, smoking related ILD. Plan: I will check a chest x-ray as noted was performed in the emergency room. I will send the respiratory pathogen panel looking for alternate infectious etiologies. Echocardiogram will be performed to assess LV function, RV function, valvular function and pulmonary pressures. No evidence of a bacterial infection and at this time I do not feel he needs antibiotics from a pulmonary perspective. Goal saturation 90-94%. I will order an overnight oximetry on room air. Later in the day lower extremity Dopplers negative for DVT. Echocardiogram with LVEF 65-70%, grade 1 diastolic dysfunction, normal RV size and function, normal right atrial size. mild tricuspid regurgitation. I spoke with the painter chassis and there is no evidence of pulmonary hypertension. Patient declined overnight oximetry study. Chest x-ray with no infiltrates or effusions. 06/01/24: Patient tells me he has no breathing issues. He denies fever, chills, rigors, no change in his chronic cough. No hemoptysis. He is breathing normal. Currently is on room air with saturations 96%. White blood cell count 7.0, creatinine 0.8. Procalcitonin 0.1. he has had no vomiting this morning. Plan: The patient has no respiratory issues. Oxygenation has improved and he is currently on room air. Respiratory pathogen panel has been sent. The patient declines oxygen studies as he says he will not wear oxygen. The patient is willing to have serologies sent to determine if he has an autoimmune disease or connective tissue disorder that could be causing an interstitial lung disease. I will order a DAISY screen that includes 11 different auto antibodies, an ANCA screen, a rheumatoid factor, anti CCP antibody, hypersensitivity pneumonitis panel, a CPK, an aldolase level, and myomarker 3 plus profile. From a pulmonary perspective patient can be discharged and does not require any pulmonary medications at this time. The patient should have repeat imaging in approximately 8 weeks to reassess his ground-glass infiltrates. offer the patient follow-up in the Pulmonary Clinic and gave him our business card. He has told me he is not sure he will do this but that he will call the clinic if interested. Discussed with Dr Padilla, will sign off, call with questions. (2) Tobacco dependence: Code(s): F17.200 - Nicotine dependence, unspecified, uncomplicated Status: Acute Assessment and Plan: 05/31/24 Patient with a 49 [address] use[address] CT scan shows no concerning masses or nodules. Plan: Tobacco cessation counseling provided. 06/01/24: I have told him he may have smoking related interstitial lung disease and that he should quit smoking. At this time he says that he is not sure he can quit smoking. 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 I told him that the cigarettes are shortening his l
[2024-06-01 09:41] LABS: Creatine Kinase 56 U/L (55-170)
--- NOTE | 2024-06-01 09:55 | P.CDI_ITS ---
Morbid obesity CDI Query Clarification Request Patient with a BMI of 43.9 please provide a diagnosis to accompany this findin g: * Overweight * Obesity * Morbid Obesity * Other/Unknown
--- NOTE | 2024-06-01 09:55 | WPDCDIQUERY2 ---
CDI Query Clarification Request Patient with a BMI of 43.9 please provide a diagnosis to accompany this finding: Overweight Obesity Morbid Obesity Other/Unknown
[2024-06-01 10:05] VITALS: O2SAT 96
[2024-06-01 10:50] LABS: Rheumatoid Factor < 12.0 IU/ML (<12)
[2024-06-01 14:00] VITALS: BP 139/78; PULSE 75; RESP 16; TEMP 36.9; O2SAT 92
--- NOTE | 2024-06-01 15:29 | PM.DS ---
DS: Admitting Diagnosis Discharge Date 06/01/2024 Admitting Diagnosis Vomiting DS: Discharge Diagnosis Discharge Diagnosis (1) Nicotine dependence: Code(s): F17.200 - Nicotine dependence, unspecified, uncomplicated Status: Acute (2) Umbilical hernia: Code(s): K42.9 - Umbilical hernia without obstruction or gangrene Status: Acute (3) Abnormal CT scan of lung: Code(s): R91.8 - Other nonspecific abnormal finding of lung field Status: Acute (4) Enteritis: Code(s): K52.9 - Noninfective gastroenteritis and colitis, unspecified Status: Acute DS: Summary Hospital Course Hospital Course: H&P via Chanda Valenzuela PA-C his is a 43-year-old male smoker who presented to the emergency department for evaluation of vomiting. The patient provides the following history. He was seen in urgent care yesterday for a 3 day history of nausea and emesis and was concerned for a possible hernia as he noticed a small bulge in the abdomen. He was without pain at that time and was referred to general surgery for an outpatient consultation. Yesterday he had multiple episodes of green bilious emesis and mild discomfort around a periumbilical hernia and he returned to the ED. He denies fever, chest pain, pleuritic pain, cough, congestion, sore throat, hematemesis, dysuria, diarrhea, and current abdominal pain. He has no known sick contacts. He is not on oxygen at home and has no known history of COPD or other lung disease. He denies sleep apnea and concerns for the same. In the ED: He was afebrile on arrival with stable blood pressures. SpO2 was 85% on room air with a good pleth any is currently on 2 L nasal cannula. Chest CTA showed no pulmonary embolism but did note diffuse mosaic attenuation with extensive ground-glass opacities throughout both lungs likely related to atelectasis and scattered subsegmental regions more lucid like air trapping related to small airway disease. CT of the abdomen pelvis showed fluid-filled loops of small bowel with wall/mucosal fold thickening with multiple loops of distal ileum suggesting enteritis, small umbilical and supraumbilical hernias, diffuse hepatic steatosis, cholelithiasis, a.m. cortical scarring at the right kidney with a 3 mm nonobstructing stone versus dystrophic parenchymal calcification. He received 1 L normal saline, ondansetron, and a DuoNeb. He is being admitted in this setting for further treatment and evaluation. --- On 06/01/2024 the patient is stable for discharge to home. He has no abdominal pain, nausea, vomiting. His umbilical hernia is reducible nontender. He has been educated about the dangers of ibuprofen. He has been placed on Tylenol and lidocaine patch. The patient does not have a PCP. He has been given resources and is advised to follow-up for chronic comorbidities and also to seek out weight loss therapies. In order to help control his pain he may be have to refer to Neurosurgery and/or pain management. The patient agrees. For his enteritis which was likely caused by heavy doses ibuprofen he has been prescribed Protonix which he should follow up with the PCP as well. His acute hypoxic respiratory failure has resolved. Has been heavily educated by the typewriters functional tester and the rivet hole puncher to quit smoking. He has been heavily educated to quit binge drinking. The patient is a very pleasant gentleman but seems to want to do these things in order to deal with stress. Advised him there are other ways to do with stress including therapy and behavioral cognitive modifications. He has also been asked to do a repeat CT scan in follow-up in the office with Dr. Forman for the abnormal CT findings however the patient does not want to at this moment. Been furnished with information none the less. Serologic studies and full respiratory viral pathogen panel are pending. Risks versus benefits of medication discussed. All of his questions and concerns were answered to satisfaction.
[2024-06-02 14:19] LABS: ANA Cascade Screen NEGATIVE (NEGATIVE)
[2024-06-02 15:08] LABS: Anti Cyclic Citrullinated Pept <16 UNITS
[2024-06-03 13:33] LABS: Aldolase 7.2 U/L (< OR = 8.1)
[2024-06-04 11:42] LABS: ANCA Screen NEGATIVE (NEGATIVE)
[2024-06-04 16:43] LABS: Adenovirus DNA Not Detected (Not Detected); Chlamydophila pneumoniae Not Detected (Not Detected); Coronavirus 229E Not Detected (Not Detected); Coronavirus HKU1 Not Detected (Not Detected); Coronavirus NL63 Not Detected (Not Detected); Coronavirus OC43 Not Detected (Not Detected); Human Metapneumovirus Not Detected (Not Detected); Human Parainfluenza Virus 1 Not Detected (Not Detected); Human Parainfluenza Virus 2 Not Detected (Not Detected); Human Parainfluenza Virus 3 Not Detected (Not Detected); Human Parainfluenza Virus 4 Not Detected (Not Detected); Human RSV B Not Detected (Not Detected); Influenza A Not Detected (Not Detected); Influenza B Not Detected (Not Detected); Mycoplasma pneumoniae Not Detected (Not Detected); Rhinovirus/Enterovirus Not Detected (Not Detected)
[2024-06-08 03:24] LABS: JO-1 AB <11 SI (<11); MI-2 Alpha Ab <11 SI (<11); MI-2 Beta Ab <11 SI (<11); NXP-2 AB <11 SI (<11); TIF1 Gamma Ab <11 SI (<11)
[2024-06-15 15:03] LABS: Aspergillus fumigatus NEGATIVE (NEGATIVE)
== END 2024-06-01 15:30 | disposition home or self-care (01) | DRG 393 ==
LOC: ANHED 16:44 → ANH3MEDSUR 17:17
PROVIDERS: Internal Medicine Pulmonary Disease; Physician Assistant; Admitting Provider Internal Medicine; Emergency Provider Student in an Organized Health Care Education/Training Program; Visit Provider General Practice
DX: K52.1 Toxic gastroenteritis and colitis (principal); J96.01 Acute respiratory failure with hypoxia; Z68.41 Body mass index [BMI] 40.0-44.9, adult; T39.315A Adverse effect of propionic acid derivatives, initial encounter; K42.9 Umbilical hernia without obstruction or gangrene; R91.8 Other nonspecific abnormal finding of lung field; K76.0 Fatty (change of) liver, not elsewhere classified; E66.01 Morbid (severe) obesity due to excess calories; F17.210 Nicotine dependence, cigarettes, uncomplicated; K80.20 Calculus of gallbladder without cholecystitis without obstruction; D72.829 Elevated white blood cell count, unspecified; Z20.822 Contact with and (suspected) exposure to COVID-19
CPT/HCPCS: 36415; 36600; 71045; 71275; 74177; 80048; 80053; 81001; 82085; 82550; 82805; 83605; 83690; 83735; 83880; 84145; 84182; 85025; 85027; 85380; 86036; 86038; 86140; 86200; 86225; 86235; 86364; 86430; 87070; 87081; 87181; 87205; 87633; 87636; 93970; 94640; 96361; 96374; 99211; 99285; A9270; C8929; G0378; G0463; J1650; J2405; J7030; J7512; Q9957; Q9967